=== PATIENT | male | born 1965 | race Hispanic/Latino ===

== ENCOUNTER 2019-07-05 19:26 | Inpatient (IN) | payer OTHER ==
--- NOTE | 2019-07-05 19:31 | Emergency Department Report ---
ED Chest Pain HPI - General Stated Complaint: CHEST PAIN Time Seen by Provider: 07/05/19 19:31 Source: patient Mode of arrival: Stretcher Limitations: No Limitations - History of Present Illness Initial Comments: Patient is a 53-year-old male that presents emergency room with complaints of chest pain. Patient describes chest pain as a tightness. Patient states the chest pain started at 4 PM today. Patient states the symptoms are worsening. Patient states his chest pain is radiating to his left arm, neck and jaw. Patient states it is a 6 out of 10. Patient states it is better with rest and worse with exertion. Patient also complains of shortness of breath, dyspnea on exertion, diaphoresis and anxiety. Patient states his shortness of breath is better with rest and worse with exertion. Patient states he has had 6 stents placed and his last HI was 6 months ago. Patient states his weapons engineer planning on placing another stent. Patient states he has a past medical history of hypertension alcohol withdrawal seizure, HI, chronic angina, TIA, CAD, hyperlipidemia, chronic pain. Patient is currently at [facility] [place] a 1013 for suicidal ideations and depression. Patient was brought in by EMS. EMS report received. EMS states the patient was picked up at [facility] facility and was given aspirin 325 orally. MD Complaint: chest pain -: Sudden - Related Data Home Medications Medication Instructions Recorded Confirmed Last Taken Amoxicillin/K Clav Tab [Augmentin 1 tab PO Q12HR 07/05/19 07/05/19 Unknown 875 mg] Aspirin EC [Ecotrin] 325 mg PO QDAY 07/05/19 07/05/19 Unknown AtorvaSTATin [Lipitor] 20 mg PO QHS 07/05/19 07/05/19 Unknown Clopidogrel [Plavix] 75 mg PO HS 07/05/19 07/05/19 Unknown Docusate Sodium [Colace] 100 mg PO BID PRN 07/05/19 07/05/19 Unknown FLUoxetine [PROzac] 20 mg PO QDAY 07/05/19 07/05/19 Unknown Folic Acid 1 mg PO DAILY 07/05/19 07/05/19 Unknown Gabapentin [Neurontin] 400 mg PO BID 07/05/19 07/05/19 Unknown Gabapentin [Neurontin] 800 mg PO TID 07/05/19 07/05/19 Unknown ISOSORBIDE MONOnitrate [Imdur ER] 30 mg PO DAILY 07/05/19 07/05/19 Unknown Metoprolol [Lopressor TAB] 50 mg PO BID 07/05/19 07/05/19 Unknown Multivitamin [One Daily 1 each PO DAILY 07/05/19 07/05/19 Unknown Multivitamin] Oxazepam 15 mg PO QID 07/05/19 07/05/19 Unknown Oxazepam [Serax] 15 mg PO BID 07/05/19 07/05/19 Unknown Oxazepam [Serax] 30 mg PO QID 07/05/19 07/05/19 Unknown Paliperidone Palmitate(Nf) [Invega 234 mg IM DAILY 07/05/19 07/05/19 Unknown Sustenna(Nf)] carBAMazepine [TEGretol] 200 mg PO Q12HR 07/05/19 07/05/19 Unknown diphenhydrAMINE [Benadryl CAP] 50 mg PO Q4H PRN 07/05/19 07/05/19 Unknown haloperidoL [Haldol] 5 mg PO Q4H PRN 07/05/19 07/05/19 Unknown hydrOXYzine PAMOATE [Vistaril] 25 mg PO Q6HR PRN 07/05/19 07/05/19 Unknown lisinopriL [Zestril] 20 mg PO QDAY 07/05/19 07/05/19 Unknown risperiDONE [RisperDAL] 3 mg PO HS 07/05/19 07/05/19 Unknown Allergies Allergy/AdvReac Type Severity Reaction Status Date / Time No Known Allergies Allergy Verified 07/05/19 22:04 Heart Score - HEART Score History: Moderately suspicious EKG: Normal Age: 45-65 Risk factors: > 3 risk factors or hx of atherosclerotic disease Troponin: < normal limit HEART Score: 4 ED Review of Systems ROS: Stated complaint: CHEST PAIN Other details as noted in HPI Constitutional: diaphoresis. denies: chills, fever Eyes: denies: eye pain, eye discharge, vision change ENT: denies: ear pain, throat pain Respiratory: shortness of breath, SOB with exertion, SOB at rest. denies: cough, wheezing Cardiovascular: chest pain, dyspnea on exertion. denies: palpitations Endocrine: no symptoms reported Gastrointestinal: denies: abdominal pain, nausea, diarrhea Genitourinary: denies: urgency, dysuria Musculoskeletal: denies: back pain, joint swelling, arthralgia Skin: denies: rash, lesions Neurological: denies: headache, weakness, paresthesias Psychiatric: anxiety. denies: depression Hematological/Lymphatic: denies: easy bleeding, easy bruising ED Past Medical Hx - Past Medical History Previous Medical History?: Yes Hx Hypertension: Yes Hx CVA: Yes Hx Heart Attack/AMI: Yes Hx Congestive Heart Failure: No Hx Seizures: Yes Hx Psychiatric Treatment: Yes - Surgical History Past Surgical History?: Yes Hx Coronary Stent: Yes - Family History Family history: no significant - Social History Smoking Status: Current Every Day Smoker Substance Use Type: Alcohol - Medications Home Medications: Home Medications Medication Instructions Recorded Confirmed Last Taken Type Amoxicillin/K Clav Tab [Augmentin 1 tab PO Q12HR 07/05/19 07/05/19 Unknown History 875 mg] Aspirin EC [Ecotrin] 325 mg PO QDAY 07/05/19 07/05/19 Unknown History AtorvaSTATin [Lipitor] 20 mg PO QHS 07/05/19 07/05/19 Unknown History Clopidogrel [Plavix] 75 mg PO HS 07/05/19 07/05/19 Unknown History Docusate Sodium [Colace] 100 mg PO BID PRN 07/05/19 07/05/19 Unknown History FLUoxetine [PROzac] 20 mg PO QDAY 07/05/19 07/05/19 Unknown History Folic Acid 1 mg PO DAILY 07/05/19 07/05/19 Unknown History Gabapentin [Neurontin] 400 mg PO BID 07/05/19 07/05/19 Unknown History Gabapentin [Neurontin] 800 mg PO TID 07/05/19 07/05/19 Unknown History ISOSORBIDE MONOnitrate [Imdur ER] 30 mg PO DAILY 07/05/19 07/05/19 Unknown History Metoprolol [Lopressor TAB] 50 mg PO BID 07/05/19 07/05/19 Unknown History Multivitamin [One Daily 1 each PO DAILY 07/05/19 07/05/19 Unknown History Multivitamin] Oxazepam 15 mg PO QID 07/05/19 07/05/19 Unknown History Oxazepam [Serax] 15 mg PO BID 07/05/19 07/05/19 Unknown History Oxazepam [Serax] 30 mg PO QID 07/05/19 07/05/19 Unknown History Paliperidone Palmitate(Nf) [Invega 234 mg IM DAILY 07/05/19 07/05/19 Unknown History Sustenna(Nf)] carBAMazepine [TEGretol] 200 mg PO Q12HR 07/05/19 07/05/19 Unknown History diphenhydrAMINE [Benadryl CAP] 50 mg PO Q4H PRN 07/05/19 07/05/19 Unknown History haloperidoL [Haldol] 5 mg PO Q4H PRN 07/05/19 07/05/19 Unknown History hydrOXYzine PAMOATE [Vistaril] 25 mg PO Q6HR PRN 07/05/19 07/05/19 Unknown History lisinopriL [Zestril] 20 mg PO QDAY 07/05/19 07/05/19 Unknown History risperiDONE [RisperDAL] 3 mg PO HS 07/05/19 07/05/19 Unknown History ED Physical Exam - General Limitations: No Limitations General appearance: alert, in no apparent distress - Head Head exam: Present: atraumatic, normocephalic - Eye Eye exam: Present: normal appearance - ENT ENT exam: Present: mucous membranes moist - Neck Neck exam: Present: normal inspection - Respiratory Respiratory exam: Present: normal lung sounds bilaterally. Absent: respiratory distress, wheezes, rales, chest wall tenderness - Cardiovascular Cardiovascular Exam: Present: regular rate, normal rhythm. Absent: systolic murmur, diastolic murmur, rubs, gallop - GI/Abdominal GI/Abdominal exam: Present: soft, normal bowel sounds - Rectal Rectal exam: Present: deferred - Extremities Exam Extremities exam: Present: normal inspection - Back Exam Back exam: Present: normal inspection - Neurological Exam Neurological exam: Present: alert, oriented X3 - Psychiatric Psychiatric exam: Present: normal affect, normal mood - Skin Skin exam: Present: warm, dry, intact, normal color. Absent: rash ED Course Vital Signs 07/05/19 07/05/19 07/05/19 19:38 19:41 20:05 Temperature 98.2 F 98.2 F Pulse Rate 84 84 Respiratory 16 16 19 Rate Blood Pressure 142/84 Blood Pressure 142/84 [Left] O2 Sat by Pulse 99 99 Oximetry 07/05/19 07/05/19 07/05/19 20:09 20:20 20:35 Temperature Pulse Rate 67 66 Respiratory 16 Rate Blood Pressure 124/74 122/68 Blood Pressure [Left] O2 Sat by Pulse Oximetry 07/05/19 07/05/19 07/05/19 20:40 22:18 23:46 Temperature 98.2 F 97.4 F L Pulse Rate 63 63 59 L Respiratory 16 18 Rate Blood Pressure 126/68 122/75 Blood Pressure 117/60 [Left] O2 Sat by Pulse 100 93 Oximetry - Reevaluation(s) Reevaluation #1: Patient states his pain is better. I discussed all results with patient. I discussed plan of care with patient. Patient agrees with plan of care and admission. Patient to be admitted to the hospitalist service. Patient came in with a 1013 from his psychiatric facility but a order in our system will be placed for 1013 for this facility 07/05/19 21:35 - Consultations Consultation #1: Hospitalist consulted for admission. Hospitalist to admit patient. Bridge orders placed. 07/05/19 21:36 BETY score - Bety Score Age > 65: (0) No Aspirin use within the Past 7 Days: (1) Yes 3 or more CAD Risk Factors: (1) Yes 2 or more Angina events in past 24 hrs: (0) No Known CAD with more than 50% Stenosis: (1) Yes Elevated Cardiac Markers: (0) No ST Deviation Greater than 0.5mm: (0) No BETY Score: 3 ED Medical Decision Making - Lab Data Result diagrams: 07/05/19 20:00 07/05/19 20:00 - EKG Data -: EKG Interpreted by [place] EKG shows normal: sinus rhythm, axis, intervals, QRS complexes, ST-T waves Rate: normal - Radiology Data Radiology results: report reviewed, image reviewed CHEST 1 VIEW INDICATION: Chest Pain. COMPARISON: None FINDINGS: Support devices: None. Heart: Within normal limits. Lungs/Pleura: No acute air space or interstitial disease. Additional findings: None. IMPRESSION: 1. No acute findings. - Medical Decision Making Patient is a 53-year-old male that presents emergency room with complaints of chest pain. Patient was currently at a psychiatric facility for suicidal ideations and depression. Patient came with a sitter. Patient has an extensive cardiac history to include stents and CAD. Patient has already had 6 stents and his weapons engineer was planning on placing a 7th stent . Patient was given aspirin nitro and morphine. Patient's pain improved. Patient's labs unremarkable. Patient admitted to the hospitalist service. Patient's EKG negative for STEMI. Patient's chest x-ray negative for acute findings. - Differential Diagnosis Chest pain, ACS, shortness of breath, MCCANN Critical Care Time: Yes Critical care time in (mins) excluding proc time.: 35 Critical care attestation.: If time is entered above; I have spent that time in minutes in the direct care of this critically ill patient, excluding procedure time. Critical Care Time: 35 minutes ED Disposition Clinical Impression: SOB (shortness of breath), MCCANN (dyspnea on exertion) Chest pain Qualifiers: Chest pain type: unspecified Qualified Code(s): R07.9 - Chest pain, unspecified CAD (coronary artery disease) Qualifiers: Coronary Disease-Associated Artery/Lesion type: [place] artery [place] vs. transplanted heart: [place] heart Associated angina: angina presence unspecified Qualified Code(s): I25.10 - Atherosclerotic heart disease of [place] coronary artery without angina pectoris Disposition: DC-09 OP ADMIT IP TO THIS HOSP Is pt being admited?: Yes Does the pt Need Aspirin: No Condition: Critical Time of Disposition: 21:31
[2019-07-05] MEDS ORDERED: MORPHINE 2 MG/1 ML INJ IV ONE (19:45)
[2019-07-05] MEDS: NITROGLYCERIN 0.4 MG TAB SUBL SL ONE ×3 (20:09→20:40)
[2019-07-05 20:14] LABS: Basophils % (Auto) 0.5 % (0.0-1.8); Eosinophils # (Auto) 0.4 K/mm3 (0.0-0.4); Eosinophils % (Auto) 4.5 % (0.0-4.3); Hemoglobin 14.3 gm/dl (11.8-15.2); Lymphocytes # (Auto) 2.3 K/mm3 (1.2-5.4); Lymphocytes % (Auto) 29.3 % (13.4-35.0); Mean Corpuscular HGB Conc 33 % (32-34); Mean Corpuscular Volume 92 fl (84-94); Monocytes # (Auto) 0.8 K/mm3 (0.0-0.8); Monocytes % (Auto) 9.9 % (0.0-7.3); Platelet Count 275 K/mm3 (140-440); Red Cell Distribution Width 13.8 % (13.2-15.2)
--- NOTE | 2019-07-05 20:16 | XRay Report ---
CHEST 1 VIEW INDICATION: Chest Pain. COMPARISON: None FINDINGS: Support devices: None. Heart: Within normal limits. Lungs/Pleura: No acute air space or interstitial disease. Additional findings: None. IMPRESSION: 1. No acute findings. Signer Name: Dm Palomares MD Signed: 07/05/2019 8:12 PM Workstation Name: [id number]
[2019-07-05 20:34] LABS: Bilirubin,Urine NEG (Negative); Blood,Urine NEG (Negative); Color,Urine Yellow (Yellow); Protein,Urine <15 mg/dL mg/dL (Negative); Urobilinogen,Urine < 2.0 mg/dL (<2.0)
[2019-07-05 20:36] LABS: Amphetamine Screen,Urine PRESUMPTIVE NEGATIVE; Cannabinoid Screen,Urine PRESUMPTIVE NEGATIVE; Cocaine Screen,Urine PRESUMPTIVE NEGATIVE; Methadone Screen,Urine PRESUMPTIVE NEGATIVE; Opiate Screen,Urine PRESUMPTIVE NEGATIVE
[2019-07-05 20:39] LABS: Alanine Aminotransferase 27 units/L (7-56); Albumin 3.9 g/dL (3.9-5); BUN/Creatinine Ratio 21; Blood Urea Nitrogen 21 mg/dL (9-20); Calcium 9.1 mg/dL (8.4-10.2); Hemolysis Index 17
[2019-07-05 20:47] LABS: Benzodiazepines Screen,Urine PRESUMPTIVE POSITIVE
--- NOTE | 2019-07-05 21:58 | History and Physical Report ---
History of Present Illness History of present illness: 53-year-old man with a history of hypertension, coronary artery disease, status post 6 stents, the last stent was a month ago, also has a history of TIA hyperlipidemia, chronic pain, depression comes emergency room for evaluation of chest pain. On the chart from reports it states that he has a history of schizoaffective disorder however the patient denies this diagnosis, he states that the doctor was going to correct it. His chest pain is in the epigastric area that started today which is described as a crushing pain, constant, intensity is 6/10, radiating to the left arm and jaw, cannot identify exacerbating factor, relieved with nitroglycerin. Admits to shortness of breath, nausea, no diaphoresis or palpitation. Patient states that his select banker was thinking of placing a 7 stent. Patient was admitted at [facility] for suicidal and homicidal ideation, he will be admitted here for chest pain evaluation Review Of Systems: Constitutional: no weight loss, fever, chills Ears, eyes, nose, mouth and throat: no nasal congestion, no nasal discharge, no sinus pressure, blurry vision, diplopia Neck: No neck pain or rigidity. Cardiovascular: No palpitations Respiratory: No shortness of breath, cough Gastrointestinal: No hematochezia Genitourinary : no dysuria, frequency Musculoskeletal: no muscle ache , joint pain Integumentary: no rash, no pruritis Neurological: no parathesias, focal weakness Endocrine: no cold or heat intolerance, no polyuria or polydipsia Hematologic/Lymphatic: no easy bruising, no easy bleeding, no gland swelling Allergic/Immunologic: no urticaria, no angioedema. PAST MEDICAL HISTORY: hypertension, coronary artery disease, status post 6 stents, TIA hyperlipidemia, chronic pain, depression PAST SURGICAL HISTORY: None SOCIAL HISTORY: + alcohol, +tobacco, no drugs FAMILY HISTORY: Hypertension Medications and Allergies Allergies Allergy/AdvReac Type Severity Reaction Status Date / Time No Known Allergies Allergy Verified 07/05/19 22:04 Exam - Physical Exam Narrative exam: Gen. appearance: Patient lying in bed, no apparent distress HEENT: Normocephalic, atraumatic, pupils equally round and reactive to light, extraocular movement intact, and no sclericterus,. No JVD or thyromegaly or nodule,neck supple, no carotid bruit ,mucous membranes moist, no exudate or erythema Heart: S1, S2, regular rate and rhythm Lungs: Clear bilaterally, breathing comfortable Abdomen: Positive bowel sounds, nontender, nondistended, no organomegaly Extremity: no edema, cyanosis, clubbing Skin: No rash, nodules, warm, dry Neuro: speech is fluent, moves extremities, sensory intact - Constitutional Vitals: Temp Pulse Resp BP Pulse Ox 98.2 F 67 19 124/74 99 07/05/19 19:41 07/05/19 20:09 07/05/19 20:05 07/05/19 20:09 07/05/19 19:41 Results - Labs CBC & Chem 7: 07/05/19 20:00 07/05/19 20:00 Labs: Abnormal lab results 07/05/19 07/05/19 Range/Units 20:00 20:00 [place] % (Auto) 9.9 H (0.0-7.3) % Eos % (Auto) 4.5 H (0.0-4.3) % BUN 21 H (9-20) mg/dL - Imaging and Cardiology EKG: report reviewed Chest x-ray: report reviewed Assessment and Plan Assessment Chest pain/coronary artery disease Check cardiac enzymes, consult cardiology Start IV morphine, Nitropaste, Plavix Suicidal and homicidal ideation Continue 1013, place with a sitter Hypertension Continue outpatient medications Hyperlipidemia, statin continue statin DVT prophylaxis
[2019-07-05] MEDS ORDERED: ONDANSETRON 4 MG/2 ML INJ IV PRN (22:10)
[2019-07-05] MEDS ORDERED: ACETAMINOPHEN 325 MG TAB PO PRN (22:10)
[2019-07-05 23:47] LABS: Creatine Kinase MB 2.5 ng/mL (0.0-4.0)
[2019-07-05] MEDS ORDERED: NITROGLYCERIN 2% OINT 1 GM TP ONE (23:55)
[2019-07-06] MEDS: MORPHINE 2 MG/1 ML INJ IV PRN ×3 (06:02→17:30)
[2019-07-06 06:04] LABS: Basophils # (Auto) 0.1 K/mm3 (0.0-0.1); Basophils % (Auto) 0.8 % (0.0-1.8); Eosinophils # (Auto) 0.4 K/mm3 (0.0-0.4); Eosinophils % (Auto) 4.8 % (0.0-4.3); Hematocrit 43.5 % (35.5-45.6); Hemoglobin 14.2 gm/dl (11.8-15.2); Lymphocytes # (Auto) 2.3 K/mm3 (1.2-5.4); Lymphocytes % (Auto) 31.4 % (13.4-35.0); Mean Corpuscular HGB Conc 33 % (32-34); Mean Corpuscular Volume 92 fl (84-94); Monocytes # (Auto) 0.8 K/mm3 (0.0-0.8); Monocytes % (Auto) 10.6 % (0.0-7.3); Platelet Count 256 K/mm3 (140-440); Red Blood Count 4.72 M/mm3 (3.65-5.03); Red Cell Distribution Width 13.9 % (13.2-15.2)
[2019-07-06 06:25] LABS: BUN/Creatinine Ratio 34; Blood Urea Nitrogen 24 mg/dL (9-20); Calcium 8.5 mg/dL (8.4-10.2); Hemolysis Index 11
--- NOTE | 2019-07-06 09:26 | Consultation ---
History of Present Illness Consult date: 07/06/19 Consult reason: chest pain History of present illness: 53 year old male presenting with chest pain radiating to his left arm, jaw , and upper back. Patient reports history of CAD with multiple PCIs recently performed in [facility]. He states that he is compliant with DAPT. Patient also has a history of alcohol abuse and suicidal ideation. ECG showing no acute findings and troponin are negative x 2. CXR showing NAP. Past History Past Medical History: acute AL, CAD, other (Multiple PCIs) Past Surgical History: PTCA Social history: smoking, alcohol abuse Medications and Allergies Allergies Allergy/AdvReac Type Severity Reaction Status Date / Time No Known Allergies Allergy Verified 07/05/19 22:04 Home Medications Medication Instructions Recorded Confirmed Last Taken Type Amoxicillin/K Clav Tab [Augmentin 1 tab PO Q12HR 07/05/19 07/05/19 Unknown History 875 mg] Aspirin EC [Ecotrin] 325 mg PO QDAY 07/05/19 07/05/19 Unknown History AtorvaSTATin [Lipitor] 20 mg PO QHS 07/05/19 07/05/19 Unknown History Clopidogrel [Plavix] 75 mg PO HS 07/05/19 07/05/19 Unknown History Docusate Sodium [Colace] 100 mg PO BID PRN 07/05/19 07/05/19 Unknown History FLUoxetine [PROzac] 20 mg PO QDAY 07/05/19 07/05/19 Unknown History Folic Acid 1 mg PO DAILY 07/05/19 07/05/19 Unknown History Gabapentin [Neurontin] 400 mg PO BID 07/05/19 07/05/19 Unknown History Gabapentin [Neurontin] 800 mg PO TID 07/05/19 07/05/19 Unknown History ISOSORBIDE MONOnitrate [Imdur ER] 30 mg PO DAILY 07/05/19 07/05/19 Unknown History Metoprolol [Lopressor TAB] 50 mg PO BID 07/05/19 07/05/19 Unknown History Multivitamin [One Daily 1 each PO DAILY 07/05/19 07/05/19 Unknown History Multivitamin] Oxazepam 15 mg PO QID 07/05/19 07/05/19 Unknown History Oxazepam [Serax] 15 mg PO BID 07/05/19 07/05/19 Unknown History Oxazepam [Serax] 30 mg PO QID 07/05/19 07/05/19 Unknown History Paliperidone Palmitate(Nf) [Invega 234 mg IM DAILY 07/05/19 07/05/19 Unknown History Sustenna(Nf)] carBAMazepine [TEGretol] 200 mg PO Q12HR 07/05/19 07/05/19 Unknown History diphenhydrAMINE [Benadryl CAP] 50 mg PO Q4H PRN 07/05/19 07/05/19 Unknown History haloperidoL [Haldol] 5 mg PO Q4H PRN 07/05/19 07/05/19 Unknown History hydrOXYzine PAMOATE [Vistaril] 25 mg PO Q6HR PRN 07/05/19 07/05/19 Unknown History lisinopriL [Zestril] 20 mg PO QDAY 07/05/19 07/05/19 Unknown History risperiDONE [RisperDAL] 3 mg PO HS 07/05/19 07/05/19 Unknown History Active Meds: Active Medications Acetaminophen (Tylenol) 650 mg PO Q4H PRN PRN Reason: Pain MILD(1-3)/Fever >100.5/HINES Clopidogrel Bisulfate (Plavix) 75 mg PO DAILY IRAIS Enoxaparin Sodium (Enoxaparin) 40 mg SUB-Q QDAY IRAIS Morphine Sulfate (Morphine) 2 mg IV Q4H PRN PRN Reason: Pain, Moderate (4-6) Last Admin: 07/06/19 06:02 Dose: 2 mg Documented by: Ondansetron HCl (Zofran) 4 mg IV Q4H PRN PRN Reason: Nausea And Vomiting Sodium Chloride (Sodium Chloride Flush Syringe 10 Ml) 10 ml IV BID IRAIS Sodium Chloride (Sodium Chloride Flush Syringe 10 Ml) 10 ml IV PRN PRN PRN Reason: LINE FLUSH Stop: 07/08/19 22:09 Review of Systems All systems: negative Physical Examination Vital Signs Temp Pulse Resp BP Pulse Ox 98.2 F 84 16 142/84 99 07/05/19 19:38 07/05/19 19:38 07/05/19 19:38 07/05/19 19:38 07/05/19 19:38 General appearance: no acute distress HEENT: Positive: PERRL Neck: Positive: neck supple Cardiac: Positive: Reg Rate and Rhythm Lungs: Positive: Normal Exam Neuro: Positive: Grossly Intact Abdomen: Positive: Soft Extremities: Absent: edema Results 07/06/19 04:26 07/06/19 04:26 Cardiac Enzymes 07/05/19 07/05/19 07/06/19 Range/Units 20:00 23:11 04:26 AST 22 (5-40) units/L CK-MB (CK-2) 2.5 2.0 (0.0-4.0) ng/mL CBC 07/05/19 07/06/19 Range/Units 20:00 04:26 WBC 7.8 7.5 (4.5-11.0) K/mm3 RBC 4.70 4.72 (3.65-5.03) M/mm3 Hgb 14.3 14.2 (11.8-15.2) gm/dl Hct 43.0 43.5 (35.5-45.6) % Plt Count 275 256 (140-440) K/mm3 Lymph # 2.3 2.3 (1.2-5.4) K/mm3 [place] # 0.8 0.8 (0.0-0.8) K/mm3 Eos # 0.4 0.4 (0.0-0.4) K/mm3 Baso # 0.0 0.1 (0.0-0.1) K/mm3 Comprehensive Metabolic Panel 07/05/19 07/06/19 Range/Units 20:00 04:26 Sodium 145 140 (137-145) mmol/L Potassium 4.6 4.1 (3.6-5.0) mmol/L Chloride 104.9 106.0 (98-107) mmol/L Carbon Dioxide 25 20 L (22-30) mmol/L BUN 21 H 24 H (9-20) mg/dL Creatinine 1.0 0.7 L (0.8-1.5) mg/dL Glucose 95 106 H (75-100) mg/dL Calcium 9.1 8.5 (8.4-10.2) mg/dL AST 22 (5-40) units/L ALT 27 (7-56) units/L Alkaline Phosphatase 101 (35-129) units/L Total Protein 6.7 (6.3-8.2) g/dL Albumin 3.9 (3.9-5) g/dL - EKG Interpretation EKG: sinus rhythm EKG interpretations - Telemetry EKG Rhythm: Sinus Rhythm Assessment and Plan Chest pain - Unstable angina Coronary artery disease s/p AL and PCIs, most reent 1-2 months ago in [facility] Nicotine dependence Alcohol abuse Suicidal ideation Recommendations: Resume asa, lipitor, metoprolol, lisinopril, Imdur Start lovenox 1 mg/Kg SC bid Obtain records from [facility] (Discussed with RN)
[2019-07-06] MEDS ORDERED: ENOXAPARIN 40 MG/0.4 ML INJ SUB-Q SCH (10:00)
[2019-07-06] MEDS: CLOPIDOGREL 75 MG TAB PO SCH (10:36)
[2019-07-06] MEDS: ASPIRIN EC 81 MG TAB PO SCH (13:01)
[2019-07-06] MEDS: LISINOPRIL 5 MG TAB PO SCH (13:02)
[2019-07-06] MEDS: ENOXAPARIN 100 MG/1 ML INJ SUB-Q SCH ×2 (13:03→21:40)
[2019-07-06] MEDS: METOPROLOL SUCCINATE XL 25 MG TAB PO SCH (13:03)
--- NOTE | 2019-07-06 14:45 | Progress Note ---
Assessment and Plan Assessment and plan: --Chest pain/coronary artery disease Check cardiac enzymes, cardiology following Start IV morphine, Nitropaste, Plavix --Suicidal and homicidal ideation Continue 1013, place with a sitter Psych evaluation requested --Hypertension Continue current antihypertensives and PRN medications --Hyperlipidemia, statin low-cholesterol diet DVT prophylaxis History Interval history: Patient seen and examined at bedside Patient complains of some intermittent chest pain Denies nausea vomiting or diaphoresis Also complains of suicidal thoughts and ideation 1013 status Vital signs noted Hospitalist Physical - Constitutional Vitals: Temp Pulse Resp BP Pulse Ox 97.5 F L 67 16 129/78 98 07/06/19 11:50 07/06/19 13:03 07/06/19 11:50 07/06/19 13:03 07/06/19 12:41 General appearance: Present: no acute distress, well-nourished - EENT Eyes: Present: PERRL, EOM intact - Neck Neck: Present: supple, normal ROM - Respiratory Respiratory effort: normal Respiratory: bilateral: diminished, negative: rales, rhonchi, wheezing - Cardiovascular Rhythm: regular Heart Sounds: Present: S1 & S2 - Extremities Extremities: no ischemia, No edema - Abdominal General gastrointestinal: soft, non-tender, non-distended, normal bowel sounds - Integumentary Integumentary: Present: clear, warm - Psychiatric Psychiatric: appropriate mood/affect, cooperative - Neurologic Neurologic: moves all extremities BETY score - Bety Score Age > 65: (0) No Aspirin use within the Past 7 Days: (1) Yes 3 or more CAD Risk Factors: (1) Yes 2 or more Angina events in past 24 hrs: (0) No Known CAD with more than 50% Stenosis: (1) Yes Elevated Cardiac Markers: (0) No ST Deviation Greater than 0.5mm: (0) No BETY Score: 3 Results - Labs CBC & Chem 7: 07/06/19 04:26 07/06/19 04:26 Labs: Laboratory Last Values WBC 7.5 K/mm3 (4.5-11.0) 07/06/19 04:26 RBC 4.72 M/mm3 (3.65-5.03) 07/06/19 04:26 Hgb 14.2 gm/dl (11.8-15.2) 07/06/19 04:26 Hct 43.5 % (35.5-45.6) 07/06/19 04:26 MCV 92 fl (84-94) 07/06/19 04:26 MCH 30 pg (28-32) 07/06/19 04:26 MCHC 33 % (32-34) 07/06/19 04:26 RDW 13.9 % (13.2-15.2) 07/06/19 04:26 Plt Count 256 K/mm3 (140-440) 07/06/19 04:26 Lymph % (Auto) 31.4 % (13.4-35.0) 07/06/19 04:26 [place] % (Auto) 10.6 % (0.0-7.3) H 07/06/19 04:26 Eos % (Auto) 4.8 % (0.0-4.3) H 07/06/19 04:26 Baso % (Auto) 0.8 % (0.0-1.8) 07/06/19 04:26 Lymph # 2.3 K/mm3 (1.2-5.4) 07/06/19 04:26 [place] # 0.8 K/mm3 (0.0-0.8) 07/06/19 04:26 Eos # 0.4 K/mm3 (0.0-0.4) 07/06/19 04:26 Baso # 0.1 K/mm3 (0.0-0.1) 07/06/19 04:26 Seg Neutrophils % 52.4 % (40.0-70.0) 07/06/19 04:26 Seg Neutrophils # 3.9 K/mm3 (1.8-7.7) 07/06/19 04:26 Sodium 140 mmol/L (137-145) 07/06/19 04:26 Potassium 4.1 mmol/L (3.6-5.0) 07/06/19 04:26 Chloride 106.0 mmol/L (98-107) 07/06/19 04:26 Carbon Dioxide 20 mmol/L (22-30) L 07/06/19 04:26 Anion Gap 18 mmol/L 07/06/19 04:26 BUN 24 mg/dL (9-20) H 07/06/19 04:26 Creatinine 0.7 mg/dL (0.8-1.5) L 07/06/19 04:26 Estimated GFR > 60 ml/min 07/06/19 04:26 BUN/Creatinine Ratio 34 % 07/06/19 04:26 Glucose 106 mg/dL (75-100) H 07/06/19 04:26 Calcium 8.5 mg/dL (8.4-10.2) 07/06/19 04:26 Total Bilirubin < 0.20 mg/dL (0.1-1.2) 07/05/19 20:00 AST 22 units/L (5-40) 07/05/19 20:00 ALT 27 units/L (7-56) 07/05/19 20:00 Alkaline Phosphatase 101 units/L (35-129) 07/05/19 20: Total Creatine Kinase 92 units/L (55-170) 07/06/19 04:26 CK-MB (CK-2) 2.0 ng/mL (0.0-4.0) 07/06/19 04:26 CK-MB (CK-2) Rel Index 2.1 (0-4) 07/06/19 04:26 Troponin T < 0.010 ng/mL (0.00-0.029) 07/06/19 04:26 Total Protein 6.7 g/dL (6.3-8.2) 07/05/19 20: Albumin 3.9 g/dL (3.9-5) 07/05/19 20:00 Albumin/Globulin Ratio 1.4 % 07/05/19 20: Urine Color Yellow (Yellow) 07/05/19 20: Urine Turbidity Clear (Clear) 07/05/19 20: Urine pH 6.0 (5.0-7.0) 07/05/19 20:11 Ur Specific [place] 1.019 (1.003-1.030) 07/05/19 20: Urine Protein <15 mg/dl mg/dL (Negative) 07/05/19 20: Urine Glucose (UA) Neg mg/dL (Negative) 07/05/19 20: Urine Ketones Neg mg/dL (Negative) 07/05/19 20:11 Urine Blood Neg (Negative) 07/05/19 20: Urine Nitrite Neg (Negative) 07/05/19 20: Urine Bilirubin Neg (Negative) 07/05/19 20:11 Urine Urobilinogen < 2.0 mg/dL (<2.0) 07/05/19 20:11 Ur Leukocyte Esterase Neg (Negative) 07/05/19 20:11 Urine WBC (Auto) 1.0 /HPF (0.0-6.0) 07/05/19 20:11 Urine RBC (Auto) 1.0 /HPF (0.0-6.0) 07/05/19 20:11 Urine Opiates Screen Presumptive negative 07/05/19 20:11 Urine Methadone Screen Presumptive negative 07/05/19 20:11 Ur Barbiturates Screen Presumptive negative 07/05/19 20:11 Ur Phencyclidine Scrn Presumptive negative 07/05/19 20:11 Ur Amphetamines Screen Presumptive negative 07/05/19 20:11 U Benzodiazepines Scrn Presumptive positive 07/05/19 20:11 Urine Cocaine Screen Presumptive negative 07/05/19 20:11 U Marijuana (THC) Screen Presumptive negative 07/05/19 20:11 Drugs of Abuse Note Disclamer 07/05/19 20:11 Active Medications - Current Medications Current Medications: Generic Name Dose Route Start Last Admin Trade Name Freq PRN Reason Stop Dose Admin Acetaminophen 650 mg 07/05/19 22:10 Tylenol PO Q4H PRN Pain MILD(1-3)/Fever >100.5/HINES Aspirin 81 mg 07/06/19 10:00 07/06/19 13:01 Halfprin Ec PO 81 mg QDAY IRAIS Administration Atorvastatin Calcium 40 mg 07/06/19 22:00 Lipitor PO QHS [facility] Clopidogrel Bisulfate 75 mg 07/06/19 10:00 07/06/19 10:36 Plavix PO 75 mg DAILY IRAIS Administration Enoxaparin Sodium 90 mg 07/06/19 10:00 07/06/19 13:03 Enoxaparin 1 mg/kg (90 mg) 90 mg SUB-Q Administration Q12HR [facility] Isosorbide Mononitrate 30 mg 07/06/19 10:00 07/06/19 13:02 Imdur PO 30 mg QDAY IRAIS Administration Lisinopril 5 mg 07/06/19 10:00 07/06/19 13:02 Zestril PO 5 mg QDAY [facility] Administration Metoprolol Succinate 25 mg 07/06/19 10:00 07/06/19 13:03 Metoprolol Xl PO 25 mg QDAY IRAIS Administration Morphine Sulfate 2 mg 07/05/19 22:10 07/06/19 11:25 Morphine IV 2 mg Q4H PRN Administration Pain, Moderate (4-6) Ondansetron HCl 4 mg 07/05/19 22:10 Zofran IV Q4H PRN Nausea And Vomiting Sodium Chloride 10 ml 07/06/19 10:00 07/06/19 10:37 Sodium Chloride Flush Syringe 10 Ml IV 10 ml BID IRAIS Administration Sodium Chloride 10 ml 07/05/19 22:10 Sodium Chloride Flush Syringe 10 Ml IV 07/08/19 22:09 PRN PRN LINE FLUSH
[2019-07-07] MEDS: MORPHINE 2 MG/1 ML INJ IV PRN ×4 (06:53→21:13)
[2019-07-07] MEDS: CLOPIDOGREL 75 MG TAB PO SCH (10:10)
[2019-07-07] MEDS: LISINOPRIL 5 MG TAB PO SCH (10:11)
[2019-07-07] MEDS: METOPROLOL SUCCINATE XL 25 MG TAB PO SCH (10:11)
[2019-07-07] MEDS: ASPIRIN EC 81 MG TAB PO SCH (10:11)
[2019-07-07] MEDS: ENOXAPARIN 100 MG/1 ML INJ SUB-Q SCH ×2 (10:11→21:13)
--- NOTE | 2019-07-07 12:10 | Progress Note ---
Assessment and Plan Assessment and plan: --Chest pain/coronary artery disease Check cardiac enzymes, cardiology valuation noted Continue current cardiac medications No further cardiac work-up during this admission Cleared for discharge --Suicidal and homicidal ideation Continue 1013, place with a sitter Psych evaluation noted --Hypertension Continue current antihypertensives and PRN medications --Hyperlipidemia, statin low-cholesterol diet DVT prophylaxis Follow psych evaluation and recommendations Possible discharge back to psych facility if stable History Interval history: Patient seen and examined Patient's chart medications and other records reviewed flatwork folder at the bedside Patient is comfortable no agitation aggression or psychotic behavior Vital signs reviewed Hospitalist Physical - Constitutional Vitals: Temp Pulse Resp BP Pulse Ox 97.7 F 61 18 135/79 94 07/07/19 08:52 07/07/19 08:52 07/07/19 08:52 07/07/19 08:52 07/07/19 08:52 General appearance: Present: no acute distress, well-nourished - EENT Eyes: Present: PERRL, EOM intact - Neck Neck: Present: supple, normal ROM - Respiratory Respiratory effort: normal Respiratory: bilateral: diminished, negative: rales, rhonchi, wheezing - Cardiovascular Rhythm: regular Heart Sounds: Present: S1 & S2 - Extremities Extremities: no ischemia, No edema - Abdominal General gastrointestinal: soft, non-tender, non-distended, normal bowel sounds - Integumentary Integumentary: Present: clear, warm - Psychiatric Psychiatric: appropriate mood/affect - Neurologic Neurologic: moves all extremities BETY score - Bety Score Age > 65: (0) No Aspirin use within the Past 7 Days: (1) Yes 3 or more CAD Risk Factors: (1) Yes 2 or more Angina events in past 24 hrs: (0) No Known CAD with more than 50% Stenosis: (1) Yes Elevated Cardiac Markers: (0) No ST Deviation Greater than 0.5mm: (0) No BETY Score: 3 Results - Labs CBC & Chem 7: 07/06/19 04:26 07/06/19 04:26 Labs: Laboratory Last Values WBC 7.5 K/mm3 (4.5-11.0) 07/06/19 04:26 RBC 4.72 M/mm3 (3.65-5.03) 07/06/19 04:26 Hgb 14.2 gm/dl (11.8-15.2) 07/06/19 04:26 Hct 43.5 % (35.5-45.6) 07/06/19 04:26 MCV 92 fl (84-94) 07/06/19 04:26 MCH 30 pg (28-32) 07/06/19 04:26 MCHC 33 % (32-34) 07/06/19 04:26 RDW 13.9 % (13.2-15.2) 07/06/19 04:26 Plt Count 256 K/mm3 (140-440) 07/06/19 04:26 Lymph % (Auto) 31.4 % (13.4-35.0) 07/06/19 04:26 [place] % (Auto) 10.6 % (0.0-7.3) H 07/06/19 04:26 Eos % (Auto) 4.8 % (0.0-4.3) H 07/06/19 04:26 Baso % (Auto) 0.8 % (0.0-1.8) 07/06/19 04:26 Lymph # 2.3 K/mm3 (1.2-5.4) 07/06/19 04:26 [place] # 0.8 K/mm3 (0.0-0.8) 07/06/19 04:26 Eos # 0.4 K/mm3 (0.0-0.4) 07/06/19 04:26 Baso # 0.1 K/mm3 (0.0-0.1) 07/06/19 04:26 Seg Neutrophils % 52.4 % (40.0-70.0) 07/06/19 04:26 Seg Neutrophils # 3.9 K/mm3 (1.8-7.7) 07/06/19 04:26 Sodium 140 mmol/L (137-145) 07/06/19 04:26 Potassium 4.1 mmol/L (3.6-5.0) 07/06/19 04:26 Chloride 106.0 mmol/L (98-107) 07/06/19 04:26 Carbon Dioxide 20 mmol/L (22-30) L 07/06/19 04:26 Anion Gap 18 mmol/L 07/06/19 04:26 BUN 24 mg/dL (9-20) H 07/06/19 04:26 Creatinine 0.7 mg/dL (0.8-1.5) L 07/06/19 04:26 Estimated GFR > 60 ml/min 07/06/19 04:26 BUN/Creatinine Ratio 34 % 07/06/19 04:26 Glucose 106 mg/dL (75-100) H 07/06/19 04:26 Calcium 8.5 mg/dL (8.4-10.2) 07/06/19 04:26 Total Bilirubin < 0.20 mg/dL (0.1-1.2) 07/05/19 20:00 AST 22 units/L (5-40) 07/05/19 20:00 ALT 27 units/L (7-56) 07/05/19 20:00 Alkaline Phosphatase 101 units/L (35-129) 07/05/19 20:00 Total Creatine Kinase 92 units/L (55-170) 07/06/19 04:26 CK-MB (CK-2) 2.0 ng/mL (0.0-4.0) 07/06/19 04:26 CK-MB (CK-2) Rel Index 2.1 (0-4) 07/06/19 04:26 Troponin T < 0.010 ng/mL (0.00-0.029) 07/06/19 04:26 Total Protein 6.7 g/dL (6.3-8.2) 07/05/19 20:00 Albumin 3.9 g/dL (3.9-5) 07/05/19 20:00 Albumin/Globulin Ratio 1.4 % 07/05/19 20:00 Urine Color Yellow (Yellow) 07/05/19 20:11 Urine Turbidity Clear (Clear) 07/05/19 20:11 Urine pH 6.0 (5.0-7.0) 07/05/19 20:11 Ur Specific [place] 1.019 (1.003-1.030) 07/05/19 20:11 Urine Protein <15 mg/dl mg/dL (Negative) 07/05/19 20:11 Urine Glucose (UA) Neg mg/dL (Negative) 07/05/19 20:11 Urine Ketones Neg mg/dL (Negative) 07/05/19 20:11 Urine Blood Neg (Negative) 07/05/19 20: Urine Nitrite Neg (Negative) 07/05/19 20:11 Urine Bilirubin Neg (Negative) 07/05/19 20:11 Urine Urobilinogen < 2.0 mg/dL (<2.0) 07/05/19 20:11 Ur Leukocyte Esterase Neg (Negative) 07/05/19 20:11 Urine WBC (Auto) 1.0 /HPF (0.0-6.0) 07/05/19 20:11 Urine RBC (Auto) 1.0 /HPF (0.0-6.0) 07/05/19 20:11 Urine Opiates Screen Presumptive negative 07/05/19 20:11 Urine Methadone Screen Presumptive negative 07/05/19 20:11 Ur Barbiturates Screen Presumptive negative 07/05/19 20:11 Ur Phencyclidine Scrn Presumptive negative 07/05/19 20:11 Ur Amphetamines Screen Presumptive negative 07/05/19 20:11 U Benzodiazepines Scrn Presumptive positive 07/05/19 20:11 Urine Cocaine Screen Presumptive negative 07/05/19 20:11 U Marijuana (THC) Screen Presumptive negative 07/05/19 20:11 Drugs of Abuse Note Disclamer 07/05/19 20:11 Active Medications - Current Medications Current Medications: Generic Name Dose Route Start Last Admin Trade Name Freq PRN Reason Stop Dose Admin Acetaminophen 650 mg 07/05/19 22:10 Tylenol PO Q4H PRN Pain MILD(1-3)/Fever >100.5/HINES Aspirin 81 mg 07/06/19 10:00 07/07/19 10:11 Halfprin Ec PO 81 mg QDAY IRAIS Administration Atorvastatin Calcium 40 mg 07/06/19 22:00 07/06/19 21:40 Lipitor PO 40 mg QHS IRAIS Administration Clopidogrel Bisulfate 75 mg 07/06/19 10:00 07/07/19 10:10 Plavix PO 75 mg DAILY IRAIS Administration Enoxaparin Sodium 90 mg 07/06/19 10:00 07/07/19 10:11 Enoxaparin 1 mg/kg (90 mg) 90 mg SUB-Q Administration Q12HR [facility] Isosorbide Mononitrate 30 mg 07/06/19 10:00 07/07/19 10:11 Imdur PO 30 mg QDAY IRAIS Administration Lisinopril 5 mg 07/06/19 10:00 07/07/19 10:11 Zestril PO 5 mg QDAY IRAIS Administration Metoprolol Succinate 25 mg 07/06/19 10:00 07/07/19 10:11 Metoprolol Xl PO 25 mg QDAY IRAIS Administration Morphine Sulfate 2 mg 07/05/19 22:10 07/07/19 11:13 Morphine IV 2 mg Q4H PRN Administration Pain, Moderate (4-6) Ondansetron HCl 4 mg 07/05/19 22:10 Zofran IV Q4H PRN Nausea And Vomiting Sodium Chloride 10 ml 07/06/19 10:00 07/07/19 10:11 Sodium Chloride Flush Syringe 10 Ml IV 10 ml BID IRAIS Administration Sodium Chloride 10 ml 07/05/19 22:10 Sodium Chloride Flush Syringe 10 Ml IV 07/08/19 22:09 PRN PRN LINE FLUSH
--- NOTE | 2019-07-07 12:12 | Consultation ---
History of Present Illness - Reason for Consult Consult date: 07/07/19 Reason for consult: psychiatric assessment - History of Present Psychiatric Illness Mr. Rocha is a 53-year-old male, the patient is alert oriented x3 he is dressed appropriately for the occasion he maintains eye contact. The patient reports that he was in [place] for detox from drugs and alcohol and started having chest pain and was brought to the emergency room. The patient reports that he does have a history of depression and anxiety that he currently takes Prozac 30 mg daily gabapentin 803 times a day to help with depression. The patient stated while he was at [place] he was also committed for suicidal ideation he denies any suicidal ideation at this time he also reported previously visual hallucinations of seeing animals he now denies visual or auditory hallucination. The patient report that he is eating well but he does not sleep well he gets 3 hours of sleep nightly. The patient stated that he was severely depressed he and report that he still depressed but think he is doing much better. The patient reports that he does drink daily but was on Suboxone while in the [facility]. PAST PSYCHIATRIC HISTORY: Diagnoses: Depression/anxiety Suicide attempts or Self-harm behavior denies Prior psychiatric hospitalizations: Yes Substance Abuse history: Marijuana and alcohol Previous psychiatric medications tried: Prozac, gabapentin Outpatient treatment: PAST MEDICAL HISTORY: Cardiac stents/high blood pressure Family Psychiatric History Brother/mom/grandmother SOCIAL HISTORY Marital Status: Single Living Arrangements: Self Employment Status: Self-employed Access to guns/weapons: Denies Education: GED History of Abuse: Denies Legal History: Yes ROS: Constitutional: Negative for weight loss ENT: Negative for stridor Respiratory: Negative for cough or hemoptysis All other systems reviewed and are negative MENTAL STATUS General Appearance and Behavior: age appropriate, good eye contact, cooperative with questioning and polite Cooperation: Cooperative Psychomotor Behavior: within normal limits Mood: OK Affect and affective range: Congruent with stated mood Thought Process: Fluent/Logical and Goal-directed Thought Content: Within reality Speech: Normal volume and Regular rate and rhythm Intellectual Functioning Average Suicidal Ideation: Denies SI Homicidal Ideation: Denies HI Impulse Control: intact Insight and Judgment: normal insight and judgment Memory: Normal Attention: Normal Orientation: alert and orientedx3 RECOMMENDATIONS MEDICATIONS: Start Prozac 30 mg daily-depression Start gabapentin 800 mg 3 times daily-alcohol dependence Start trazodone 50 mg nightly sleep Risks, benefits and alternatives of medications discussed with the patient, questions answered and consent obtained from patient. PSYCHOTHERAPY: Supportive psychotherapy provided MEDICAL: Per primary team DELIRIUM PRECAUTIONS: Please re-orient patient frequently, keep lights on during the day, and minimize benzodiazepines and opiates as these medications could w orsen patient's confusion. INFORMATION DEVELOPER: DISPOSITION: The patient meets the requirement for acute inpatient psychiatric treatment at this time. She may transfer back to [place] [facility] upon medical clearance. LEGAL STATUS: 1013 FOLLOW-UP: Will follow Medications and Allergies Allergies Allergy/AdvReac Type Severity Reaction Status Date / Time No Known Allergies Allergy Verified 07/05/19 22:04 Home Medications Medication Instructions Recorded Confirmed Last Taken Type Amoxicillin/K Clav Tab [Augmentin 1 tab PO Q12HR 07/05/19 07/05/19 Unknown History 875 mg] Aspirin EC [Ecotrin] 325 mg PO QDAY 07/05/19 07/05/19 Unknown History AtorvaSTATin [Lipitor] 20 mg PO QHS 07/05/19 07/05/19 Unknown History Clopidogrel [Plavix] 75 mg PO HS 07/05/19 07/05/19 Unknown History Docusate Sodium [Colace] 100 mg PO BID PRN 07/05/19 07/05/19 Unknown History FLUoxetine [PROzac] 20 mg PO QDAY 07/05/19 07/05/19 Unknown History Folic Acid 1 mg PO DAILY 07/05/19 07/05/19 Unknown History Gabapentin [Neurontin] 400 mg PO BID 07/05/19 07/05/19 Unknown History Gabapentin [Neurontin] 800 mg PO TID 07/05/19 07/05/19 Unknown History ISOSORBIDE MONOnitrate [Imdur ER] 30 mg PO DAILY 07/05/19 07/05/19 Unknown History Metoprolol [Lopressor TAB] 50 mg PO BID 07/05/19 07/05/19 Unknown History Multivitamin [One Daily 1 each PO DAILY 07/05/19 07/05/19 Unknown History Multivitamin] Oxazepam 15 mg PO QID 07/05/19 07/05/19 Unknown History Oxazepam [Serax] 15 mg PO BID 07/05/19 07/05/19 Unknown History Oxazepam [Serax] 30 mg PO QID 07/05/19 07/05/19 Unknown History Paliperidone Palmitate(Nf) [Invega 234 mg IM DAILY 07/05/19 07/05/19 Unknown History Sustenna(Nf)] carBAMazepine [TEGretol] 200 mg PO Q12HR 07/05/19 07/05/19 Unknown History diphenhydrAMINE [Benadryl CAP] 50 mg PO Q4H PRN 07/05/19 07/05/19 Unknown History haloperidoL [Haldol] 5 mg PO Q4H PRN 07/05/19 07/05/19 Unknown History hydrOXYzine PAMOATE [Vistaril] 25 mg PO Q6HR PRN 07/05/19 07/05/19 Unknown History lisinopriL [Zestril] 20 mg PO QDAY 07/05/19 07/05/19 Unknown History risperiDONE [RisperDAL] 3 mg PO HS 07/05/19 07/05/19 Unknown History Active Meds: Active Medications Acetaminophen (Tylenol) 650 mg PO Q4H PRN PRN Reason: Pain MILD(1-3)/Fever >100.5/HINES Aspirin (Halfprin Ec) 81 mg PO QDAY [facility] Last Admin: 07/07/19 10:11 Dose: 81 mg Documented by: Atorvastatin Calcium (Lipitor) 40 mg PO QHS [facility] Last Admin: 07/06/19 21:40 Dose: 40 mg Documented by: Clopidogrel Bisulfate (Plavix) 75 mg PO DAILY [facility] Last Admin: 07/07/19 10:10 Dose: 75 mg Documented by: Enoxaparin Sodium (Enoxaparin) 90 mg 1 mg/kg (90 mg) SUB-Q Q12HR [facility] Last Admin: 07/07/19 10:11 Dose: 90 mg Documented by: Isosorbide Mononitrate (Imdur) 30 mg PO QDAY [facility] Last Admin: 07/07/19 10:11 Dose: 30 mg Documented by: Lisinopril (Zestril) 5 mg PO QDAY [facility] Last Admin: 07/07/19 10:11 Dose: 5 mg Documented by: Metoprolol Succinate (Metoprolol Xl) 25 mg PO QDAY [facility] Last Admin: 07/07/19 10:11 Dose: 25 mg Documented by: Morphine Sulfate (Morphine) 2 mg IV Q4H PRN PRN Reason: Pain, Moderate (4-6) Last Admin: 07/07/19 11:13 Dose: 2 mg Documented by: Ondansetron HCl (Zofran) 4 mg IV Q4H PRN PRN Reason: Nausea And Vomiting Sodium Chloride (Sodium Chloride Flush Syringe 10 Ml) 10 ml IV BID IRAIS Last Admin: 07/07/19 10:11 Dose: 10 ml Documented by: Sodium Chloride (Sodium Chloride Flush Syringe 10 Ml) 10 ml IV PRN PRN PRN Reason: LINE FLUSH Stop: 07/08/19 22:09 Mental Status Exam - Vital signs Last Vital Signs Temp 97.7 F 07/07/19 08:52 Pulse 61 07/07/19 08:52 Resp 18 07/07/19 08:52 BP 135/79 07/07/19 08:52 Pulse Ox 94 07/07/19 08:52 Results Result Diagrams: 07/06/19 04:26 07/06/19 04:26 All other labs normal.
[2019-07-07] MEDS: FLUoxetine 10 MG TAB PO SCH (13:21)
[2019-07-07] MEDS: GABAPENTIN 400 MG CAP PO SCH ×2 (13:21→21:12)
--- NOTE | 2019-07-07 13:29 | Progress Note ---
Assessment and Plan - Patient Problems (1) Chest pain Current Visit: Yes Status: Acute Qualifiers: Chest pain type: unspecified Qualified Code(s): R07.9 - Chest pain, unspecified Plan to address problem: Patient has coronary artery disease, is currently admitted to [facility] for alcohol abuse and suicide ideation. He was transferred to the hospital from [place] for complaint of nonexertional, atypical and poorly characterized chest pain. ECG, cardiac enzymes have all been negative. He reports a coronary intervention procedure at the hospital in [place] just one month ago. Since then, he has been fully compliant with his Plavix therapy. On this presentation there is no clinical, EKG or laboratory evidence of subacute stent thrombosis. We will continue guideline directed medical therapy, including his dual oral antiplatelet therapy. Otherwise, he is stable for return to the psychiatric center, no further cardiac workup is indicated. Subjective Date of service: 07/07/19 Interval history: Patient is comfortable, no cardiac complaints. Objective Vital Signs Temp Pulse Resp BP Pulse Ox 07/07/19 13:01 97.8 F 63 18 131/67 98 07/07/19 08:52 97.7 F 61 18 135/79 94 07/07/19 08:33 96 07/07/19 04:00 49 L 07/07/19 03:43 97.6 F 63 18 116/79 94 07/07/19 00:10 97.5 F L 54 L 16 115/56 91 07/06/19 21:57 94 07/06/19 19:10 97.5 F L 61 16 114/66 95 07/06/19 17:56 97.7 F 64 18 124/76 96 07/06/19 16:00 76 - Physical Examination General: Appears Well, No Apparent Distress HEENT: Positive: PERRL Neck: Positive: neck supple Cardiac: Positive: Reg Rate and Rhythm Lungs: Positive: clear to auscultation Neuro: Positive: Grossly Intact Abdomen: Positive: Soft Skin: Positive: Clear Extremities: Absent: edema - Imaging and Cardiology EKG: report reviewed
[2019-07-07] MEDS: traZODone 50 MG TAB PO SCH (21:13)
[2019-07-08] MEDS: MORPHINE 2 MG/1 ML INJ IV PRN ×4 (05:50→20:47)
--- NOTE | 2019-07-08 08:48 | Discharge Summary ---
Providers - Providers Date of Admission: 07/06/19 13:54 Date of discharge: 07/08/19 Attending physician: ELIJAH HAGER 07/05/19 22:10 Consult to Physician [CONS] Routine Comment: Consulting Provider: SANTIAGO MIN Physician Instructions: Reason For Exam: cp/cad 07/06/19 14:44 psychiatry consult [Consult to Mental Health] [CONS] Routine Reason For Exam: Suicidal ideation Hospitalization Condition: Fair Disposition: [id number]/[place]-[id number] PSY HOSP/PSY UNIT Time spent for discharge: 32 min Exam - Constitutional Vitals: Temp Pulse Resp BP Pulse Ox 98.0 F 63 18 129/79 93 07/08/19 08:37 07/08/19 08:37 07/08/19 08:37 07/08/19 08:37 07/08/19 08:37 Plan Activity: advance as tolerated Diet: other (cardiac diet) Additional Instructions: Patient medically stable for discharge and transfer to [place] psych facility today. Cardiology cleared for discharge and transfer to psych facility Follow up with: JOSE ANTONIO TUBBS [Other] - 7 Days SANTIAGO MIN MD [Staff Physician] - 14 Days
[2019-07-08] MEDS: CLOPIDOGREL 75 MG TAB PO SCH (10:21)
[2019-07-08] MEDS: ENOXAPARIN 100 MG/1 ML INJ SUB-Q SCH ×2 (10:21→22:42)
[2019-07-08] MEDS: METOPROLOL SUCCINATE XL 25 MG TAB PO SCH (10:21)
[2019-07-08] MEDS: FLUoxetine 10 MG TAB PO SCH (10:21)
[2019-07-08] MEDS: GABAPENTIN 400 MG CAP PO SCH ×3 (10:21→20:46)
[2019-07-08] MEDS: ASPIRIN EC 81 MG TAB PO SCH (10:22)
[2019-07-08] MEDS: LISINOPRIL 5 MG TAB PO SCH (10:22)
--- NOTE | 2019-07-08 15:13 | Progress Note ---
Assessment and Plan - Patient Problems (1) Chest pain Current Visit: Yes Status: Acute Qualifiers: Chest pain type: unspecified Qualified Code(s): R07.9 - Chest pain, unspecified Plan to address problem: Patient has coronary artery disease, is currently admitted to [facility] for alcohol abuse and suicide ideation. He was transferred to the hospital from [place] for complaint of nonexertional, atypical and poorly characterized chest pain. ECG, cardiac enzymes have all been negative. He reports a coronary intervention procedure at the hospital in [place] just one month ago. Since then, he has been fully compliant with his Plavix therapy. On this presentation there is no clinical, EKG or laboratory evidence of subacute stent thrombosis. We will continue guideline directed medical therapy, including his dual oral antiplatelet therapy. Otherwise, he is stable for return to the psychiatric center, no further cardiac workup is indicated. Subjective Date of service: 07/08/19 Interval history: Patient is comfortable, no cardiac complaints. Objective Vital Signs Temp Pulse Resp BP Pulse Ox 07/08/19 08:37 98.0 F 63 18 129/79 93 07/08/19 03:26 98.0 F 56 L 18 113/65 93 07/07/19 20:09 98.3 F 61 18 120/74 96 07/07/19 16:01 97.3 F L 57 L 18 118/71 97 - Physical Examination General: Appears Well, No Apparent Distress HEENT: Positive: PERRL Neck: Positive: neck supple Cardiac: Positive: Reg Rate and Rhythm Lungs: Positive: Decreased Breath Sounds Neuro: Positive: Grossly Intact Abdomen: Positive: Soft Skin: Positive: Clear Extremities: Absent: edema - Imaging and Cardiology EKG: report reviewed
--- NOTE | 2019-07-08 18:16 | Progress Note ---
Assessment and Plan Assessment and plan: --Chest pain/coronary artery disease Cardiology evaluated the patient Advised to continue medical management Recommended no cardiac work-up Cleared for discharge --Suicidal and homicidal ideation Continue 1013, place with a sitter Psych evaluated the patient and recommended To transfer back to [place] when medically cleared Patient is medically stable for discharge --Hypertension; well controlled Continue current antihypertensives and PRN medications --Hyperlipidemia, statin low-cholesterol diet DVT prophylaxis Lovenox Initially discharge the patient, the nurse contacted [place] They informed that patient was discharged from their service And psych need to readmit the patient. Patient is unable to be discharged today We will check with psych and set up discharge planning Plan of care reviewed with the patient and his nurse Continue current management History Interval history: Patient seen and examined in his room at the bedside Patient feels better no new complaints Patient is medically stable, cardiology cleared for discharge Psych advised to transfer the patient to back to [place] However [facility] facility refused to take back the patient Saying the patient was discharged from their service, need to be readmitted by psychiatrist. Hospitalist Physical - Constitutional Vitals: Temp Pulse Resp BP Pulse Ox 98.0 F 63 18 129/79 93 07/08/19 08:37 07/08/19 08:37 07/08/19 08:37 07/08/19 08:37 07/08/19 08:37 General appearance: Present: no acute distress, well-nourished - EENT Eyes: Present: PERRL, EOM intact - Neck Neck: Present: supple, normal ROM - Respiratory Respiratory effort: normal Respiratory: bilateral: diminished, negative: rales, rhonchi, wheezing - Cardiovascular Rhythm: regular Heart Sounds: Present: S1 & S2 - Extremities Extremities: no ischemia, No edema - Abdominal General gastrointestinal: soft, non-tender, non-distended, normal bowel sounds - Integumentary Integumentary: Present: clear, warm - Psychiatric Psychiatric: appropriate mood/affect, cooperative - Neurologic Neurologic: moves all extremities BETY score - Bety Score Age > 65: (0) No Aspirin use within the Past 7 Days: (1) Yes 3 or more CAD Risk Factors: (1) Yes 2 or more Angina events in past 24 hrs: (0) No Known CAD with more than 50% Stenosis: (1) Yes Elevated Cardiac Markers: (0) No ST Deviation Greater than 0.5mm: (0) No BETY Score: 3 Results - Labs CBC & Chem 7: 07/06/19 04:26 07/06/19 04:26 Labs: Laboratory Last Values WBC 7.5 K/mm3 (4.5-11.0) 07/06/19 04:26 RBC 4.72 M/mm3 (3.65-5.03) 07/06/19 04:26 Hgb 14.2 gm/dl (11.8-15.2) 07/06/19 04:26 Hct 43.5 % (35.5-45.6) 07/06/19 04:26 MCV 92 fl (84-94) 07/06/19 04:26 MCH 30 pg (28-32) 07/06/19 04:26 MCHC 33 % (32-34) 07/06/19 04:26 RDW 13.9 % (13.2-15.2) 07/06/19 04:26 Plt Count 256 K/mm3 (140-440) 07/06/19 04:26 Lymph % (Auto) 31.4 % (13.4-35.0) 07/06/19 04:26 [place] % (Auto) 10.6 % (0.0-7.3) H 07/06/19 04:26 Eos % (Auto) 4.8 % (0.0-4.3) H 07/06/19 04:26 Baso % (Auto) 0.8 % (0.0-1.8) 07/06/19 04:26 Lymph # 2.3 K/mm3 (1.2-5.4) 07/06/19 04:26 Falls # 0.8 K/mm3 (0.0-0.8) 07/06/19 04:26 Eos # 0.4 K/mm3 (0.0-0.4) 07/06/19 04:26 Baso # 0.1 K/mm3 (0.0-0.1) 07/06/19 04:26 Seg Neutrophils % 52.4 % (40.0-70.0) 07/06/19 04:26 Seg Neutrophils # 3.9 K/mm3 (1.8-7.7) 07/06/19 04:26 Sodium 140 mmol/L (137-145) 07/06/19 04:26 Potassium 4.1 mmol/L (3.6-5.0) 07/06/19 04:26 Chloride 106.0 mmol/L (98-107) 07/06/19 04:26 Carbon Dioxide 20 mmol/L (22-30) L 07/06/19 04:26 Anion Gap 18 mmol/L 07/06/19 04:26 BUN 24 mg/dL (9-20) H 07/06/19 04:26 Creatinine 0.7 mg/dL (0.8-1.5) L 07/06/19 04:26 Estimated GFR > 60 ml/min 07/06/19 04:26 BUN/Creatinine Ratio 34 % 07/06/19 04:26 Glucose 106 mg/dL (75-100) H 07/06/19 04:26 Calcium 8.5 mg/dL (8.4-10.2) 07/06/19 04:26 Total Bilirubin < 0.20 mg/dL (0.1-1.2) 07/05/19 20:00 AST 22 units/L (5-40) 07/05/19 20:00 ALT 27 units/L (7-56) 07/05/19 20:00 Alkaline Phosphatase 101 units/L (35-129) 07/05/19 20:00 Total Creatine Kinase 92 units/L (55-170) 07/06/19 04:26 CK-MB (CK-2) 2.0 ng/mL (0.0-4.0) 07/06/19 04:26 CK-MB (CK-2) Rel Index 2.1 (0-4) 07/06/19 04:26 Troponin T < 0.010 ng/mL (0.00-0.029) 07/06/19 04:26 Total Protein 6.7 g/dL (6.3-8.2) 07/05/19 20:00 Albumin 3.9 g/dL (3.9-5) 07/05/19 20: Albumin/Globulin Ratio 1.4 % 07/05/19 20:00 Urine Color Yellow (Yellow) 07/05/19 20:11 Urine Turbidity Clear (Clear) 07/05/19 20:11 Urine pH 6.0 (5.0-7.0) 07/05/19 20:11 Ur Specific [place] 1.019 (1.003-1.030) 07/05/19 20:11 Urine Protein <15 mg/dl mg/dL (Negative) 07/05/19 20:11 Urine Glucose (UA) Neg mg/dL (Negative) 07/05/19 20:11 Urine Ketones Neg mg/dL (Negative) 07/05/19 20:11 Urine Blood Neg (Negative) 07/05/19 20:11 Urine Nitrite Neg (Negative) 07/05/19 20:11 Urine Bilirubin Neg (Negative) 07/05/19 20:11 Urine Urobilinogen < 2.0 mg/dL (<2.0) 07/05/19 20:11 Ur Leukocyte Esterase Neg (Negative) 07/05/19 20:11 Urine WBC (Auto) 1.0 /HPF (0.0-6.0) 07/05/19 20:11 Urine RBC (Auto) 1.0 /HPF (0.0-6.0) 07/05/19 20:11 Urine Opiates Screen Presumptive negative 07/05/19 20:11 Urine Methadone Screen Presumptive negative 07/05/19 20:11 Ur Barbiturates Screen Presumptive negative 07/05/19 20:11 Ur Phencyclidine Scrn Presumptive negative 07/05/19 20:11 Ur Amphetamines Screen Presumptive negative 07/05/19 20:11 U Benzodiazepines Scrn Presumptive positive 07/05/19 20:11 Urine Cocaine Screen Presumptive negative 07/05/19 20:11 U Marijuana (THC) Screen Presumptive negative 07/05/19 20:11 Drugs of Abuse Note Disclamer 07/05/19 20:11 Active Medications - Current Medications Current Medications: Generic Name Dose Route Start Last Admin Trade Name Freq PRN Reason Stop Dose Admin Acetaminophen 650 mg 07/05/19 22:10 Tylenol PO Q4H PRN Pain MILD(1-3)/Fever >100.5/HINES Aspirin 81 mg 07/06/19 10:00 07/08/19 10:22 Halfprin Ec PO 81 mg QDAY IRAIS Administration Atorvastatin Calcium 40 mg 07/06/19 22:00 07/07/19 21:13 Lipitor PO 40 mg QHS IRAIS Administration Clopidogrel Bisulfate 75 mg 07/06/19 10:00 07/08/19 10:21 Plavix PO 75 mg DAILY IRAIS Administration Enoxaparin Sodium 90 mg 07/06/19 10:00 07/08/19 10:21 Enoxaparin 1 mg/kg (90 mg) 90 mg SUB-Q Administration Q12HR RIAIS Fluoxetine HCl 30 mg 07/07/19 14:00 07/08/19 10:21 Prozac PO 30 mg QDAY IRAIS Administration Gabapentin 800 mg 07/07/19 14:00 07/08/19 10:21 Gabapentin PO 800 mg TID IRAIS Administration Isosorbide Mononitrate 30 mg 07/06/19 10:00 07/08/19 10:21 Imdur PO 30 mg QDAY IRAIS Administration Lisinopril 5 mg 07/06/19 10:00 07/08/19 10:22 Zestril PO 5 mg QDAY IRAIS Administration Metoprolol Succinate 25 mg 07/06/19 10:00 07/08/19 10:21 Metoprolol Xl PO 25 mg QDAY IRAIS Administration Morphine Sulfate 2 mg 07/05/19 22:10 07/08/19 15:33 Morphine IV 2 mg Q4H PRN Administration Pain, Moderate (4-6) Ondansetron HCl 4 mg 07/05/19 22:10 Zofran IV Q4H PRN Nausea And Vomiting Sodium Chloride 10 ml 07/06/19 10:00 07/07/19 21:13 Sodium Chloride Flush Syringe 10 Ml IV 10 ml BID IRAIS Administration Sodium Chloride 10 ml 07/05/19 22:10 Sodium Chloride Flush Syringe 10 Ml IV 07/08/19 22:09 PRN PRN LINE FLUSH Trazodone HCl 50 mg 07/07/19 22:00 07/07/19 21:13 Desyrel PO 50 mg QHS IRAIS Administration
[2019-07-08] MEDS: traZODone 50 MG TAB PO SCH (22:42)
[2019-07-09] MEDS: MORPHINE 2 MG/1 ML INJ IV PRN (08:56)
[2019-07-09] MEDS: ASPIRIN EC 81 MG TAB PO SCH (09:00)
[2019-07-09] MEDS: LISINOPRIL 5 MG TAB PO SCH (09:00)
[2019-07-09] MEDS: ENOXAPARIN 100 MG/1 ML INJ SUB-Q SCH (09:01)
[2019-07-09] MEDS: CLOPIDOGREL 75 MG TAB PO SCH (09:01)
[2019-07-09] MEDS: METOPROLOL SUCCINATE XL 25 MG TAB PO SCH (09:01)
[2019-07-09] MEDS: GABAPENTIN 400 MG CAP PO SCH ×2 (09:01→13:30)
[2019-07-09 09:02] VITALS: BP 146/67
[2019-07-09] MEDS: FLUoxetine 10 MG TAB PO SCH (09:02)
--- NOTE | 2019-07-09 13:58 | Progress Note ---
Subjective Date of service: 07/09/19 Principal diagnosis: psychiatric assessment Subjective Comment: Mr. Rocha was in his room sitting on the side of the bed, the patient is alert oriented x3 he is able to make needs known he maintains eye contact. The patient denies suicidal or homicidal ideations the patient contract for safety. The patient denies seeing or hearing things. The patient report that he is sleeping and eating well. The patient denies any form of depressive symptoms. The patient asked this documentation writer if the facility does not take him back if he is okay to go home this documentation writer stated yes. The patient stated, "well I might just get suicidal and come back". When this documentation writer asked the patient how do you know you will get suicidal the patient stated, because it always happens". ROS: Constitutional: Negative for weight loss ENT: Negative for stridor Respiratory: Negative for cough or hemoptysis All other systems reviewed and are negative MENTAL STATUS General Appearance and Behavior: age appropriate, good eye contact, cooperative with questioning and polite Cooperation: Cooperative Psychomotor Behavior: within normal limits Mood: OK Affect and affective range: Congruent with stated mood Thought Process: Fluent/Logical and Goal-directed Thought Content: Within reality Speech: Normal volume and Regular rate and rhythm Intellectual Functioning Average Suicidal Ideation: Denies SI Homicidal Ideation: Denies HI Impulse Control: intact Insight and Judgment: normal insight and judgment Memory: Normal Attention: Normal Orientation: alert and orientedx3 RECOMMENDATIONS MEDICATIONS: continue psychiatric medications Risks, benefits and alternatives of medications discussed with the patient, questions answered and consent obtained from patient. PSYCHOTHERAPY: Supportive psychotherapy provided MEDICAL: Per primary team DELIRIUM PRECAUTIONS: Please re-orient patient frequently, keep lights on during the day, and minimize benzodiazepines and opiates as these medications could worsen patient's confusion. 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: DISPOSITION: No indication for inpatient psychiatric hospitalization at this time LEGAL STATUS: d/c 1013 FOLLOW-UP: sign off Medications and Allergies Allergies Allergy/AdvReac Type Severity Reaction Status Date / Time No Known Allergies Allergy Verified 07/05/19 22:04 Home Medications Medication Instructions Recorded Confirmed Last Taken Type Amoxicillin/K Clav Tab [Augmentin 1 tab PO Q12HR 07/05/19 07/05/19 Unknown History 875MG TAB] Aspirin EC [Ecotrin] 325 mg PO QDAY 07/05/19 07/05/19 Unknown History AtorvaSTATin [Lipitor] 20 mg PO QHS 07/05/19 07/05/19 Unknown History Clopidogrel [Plavix] 75 mg PO HS 07/05/19 07/05/19 Unknown History Docusate Sodium [Colace CAP] 100 mg PO BID PRN 07/05/19 07/05/19 Unknown History FLUoxetine [PROzac] 20 mg PO QDAY 07/05/19 07/05/19 Unknown History Folic Acid 1 mg PO DAILY 07/05/19 07/05/19 Unknown History Gabapentin [Neurontin] 400 mg PO BID 07/05/19 07/05/19 Unknown History ISOSORBIDE MONOnitrate [Imdur ER] 30 mg PO DAILY 07/05/19 07/05/19 Unknown History Metoprolol [Lopressor TAB] 50 mg PO BID 07/05/19 07/05/19 Unknown History Multivitamin [One Daily 1 each PO DAILY 07/05/19 07/05/19 Unknown History Multivitamin] Oxazepam 15 mg PO QID 07/05/19 07/05/19 Unknown History Paliperidone Palmitate(Nf) [Invega 234 mg IM DAILY 07/05/19 07/05/19 Unknown History Sustenna(Nf)] carBAMazepine [TEGretol] 200 mg PO Q12HR 07/05/19 07/05/19 Unknown History diphenhydrAMINE [Benadryl CAP] 50 mg PO Q4H PRN 07/05/19 07/05/19 Unknown History haloperidoL [Haldol] 5 mg PO Q4H PRN 07/05/19 07/05/19 Unknown History hydrOXYzine PAMOATE [Vistaril] 25 mg PO Q6HR PRN 07/05/19 07/05/19 Unknown History lisinopriL [Zestril TAB] 20 mg PO QDAY 07/05/19 07/05/19 Unknown History risperiDONE [RisperDAL] 3 mg PO HS 07/05/19 07/05/19 Unknown History traZODone [Desyrel] 50 mg PO QHS tablet 07/08/19 Unknown Rx Active Meds: Active Medications Acetaminophen (Tylenol) 650 mg PO Q4H PRN PRN Reason: Pain MILD(1-3)/Fever >100.5/HINES Aspirin (Halfprin Ec) 81 mg PO QDAY IRAIS Last Admin: 07/09/19 09:00 Dose: 81 mg Documented by: Atorvastatin Calcium (Lipitor) 40 mg PO QHS [facility] Last Admin: 07/08/19 22:42 Dose: 40 mg Documented by: Clopidogrel Bisulfate (Plavix) 75 mg PO DAILY [facility] Last Admin: 07/09/19 09:01 Dose: 75 mg Documented by: Enoxaparin Sodium (Enoxaparin) 90 mg 1 mg/kg (90 mg) SUB-Q Q12HR [facility] Last Admin: 07/09/19 09:01 Dose: 90 mg Documented by: Fluoxetine HCl (Prozac) 30 mg PO QDAY [facility] Last Admin: 07/09/19 09:02 Dose: 30 mg Documented by: Gabapentin (Gabapentin) 800 mg PO TID [facility] Last Admin: 07/09/19 13:30 Dose: 800 mg Documented by: Isosorbide Mononitrate (Imdur) 30 mg PO QDAY [facility] Last Admin: 07/09/19 09:01 Dose: 30 mg Documented by: Lisinopril (Zestril) 5 mg PO QDAY [facility] Last Admin: 07/09/19 09:00 Dose: 5 mg Documented by: Metoprolol Succinate (Metoprolol Xl) 25 mg PO QDAY [facility] Last Admin: 07/09/19 09:01 Dose: 25 mg Documented by: Ondansetron HCl (Zofran) 4 mg IV Q4H PRN PRN Reason: Nausea And Vomiting Sodium Chloride (Sodium Chloride Flush Syringe 10 Ml) 10 ml IV BID [facility] Last Admin: 07/09/19 09:02 Dose: 10 ml Documented by: Trazodone HCl (Desyrel) 50 mg PO QHS [facility] Last Admin: 07/08/19 22:42 Dose: 50 mg Documented by: Results - Results Labs/Vitals: Laboratory Last Values WBC 7.5 K/mm3 (4.5-11.0) 07/06/19 04:26 RBC 4.72 M/mm3 (3.65-5.03) 07/06/19 04:26 Hgb 14.2 gm/dl (11.8-15.2) 07/06/19 04:26 Hct 43.5 % (35.5-45.6) 07/06/19 04:26 MCV 92 fl (84-94) 07/06/19 04:26 MCH 30 pg (28-32) 07/06/19 04:26 MCHC 33 % (32-34) 07/06/19 04:26 RDW 13.9 % (13.2-15.2) 07/06/19 04:26 Plt Count 256 K/mm3 (140-440) 07/06/19 04:26 Lymph % (Auto) 31.4 % (13.4-35.0) 07/06/19 04:26 [place] % (Auto) 10.6 % (0.0-7.3) H 07/06/19 04:26 Eos % (Auto) 4.8 % (0.0-4.3) H 07/06/19 04:26 Baso % (Auto) 0.8 % (0.0-1.8) 07/06/19 04:26 Lymph # 2.3 K/mm3 (1.2-5.4) 07/06/19 04:26 [place] # 0.8 K/mm3 (0.0-0.8) 07/06/19 04:26 Eos # 0.4 K/mm3 (0.0-0.4) 07/06/19 04:26 Baso # 0.1 K/mm3 (0.0-0.1) 07/06/19 04:26 Seg Neutrophils % 52.4 % (40.0-70.0) 07/06/19 04:26 Seg Neutrophils # 3.9 K/mm3 (1.8-7.7) 07/06/19 04:26 Sodium 140 mmol/L (137-145) 07/06/19 04:26 Potassium 4.1 mmol/L (3.6-5.0) 07/06/19 04:26 Chloride 106.0 mmol/L (98-107) 07/06/19 04:26 Carbon Dioxide 20 mmol/L (22-30) L 07/06/19 04:26 Anion Gap 18 mmol/L 07/06/19 04:26 BUN 24 mg/dL (9-20) H 07/06/19 04:26 Creatinine 0.7 mg/dL (0.8-1.5) L 07/06/19 04:26 Estimated GFR > 60 ml/min 07/06/19 04:26 BUN/Creatinine Ratio 34 % 07/06/19 04:26 Glucose 106 mg/dL (75-100) H 07/06/19 04:26 Calcium 8.5 mg/dL (8.4-10.2) 07/06/19 04:26 Total Bilirubin < 0.20 mg/dL (0.1-1.2) 07/05/19 20:00 AST 22 units/L (5-40) 07/05/19 20:00 ALT 27 units/L (7-56) 07/05/19 20:00 Alkaline Phosphatase 101 units/L (35-129) 07/05/19 20:00 Total Creatine Kinase 92 units/L (55-170) 07/06/19 04:26 CK-MB (CK-2) 2.0 ng/mL (0.0-4.0) 07/06/19 04:26 CK-MB (CK-2) Rel Index 2.1 (0-4) 07/06/19 04:26 Troponin T < 0.010 ng/mL (0.00-0.029) 07/06/19 04:26 Total Protein 6.7 g/dL (6.3-8.2) 07/05/19 20:00 Albumin 3.9 g/dL (3.9-5) 07/05/19 20: Albumin/Globulin Ratio 1.4 % 07/05/19 20: Urine Color Yellow (Yellow) 07/05/19 20: Urine Turbidity Clear (Clear) 07/05/19 20: Urine pH 6.0 (5.0-7.0) 07/05/19 20: Ur Specific [place] 1.019 (1.003-1.030) 07/05/19 20: Urine Protein <15 mg/dl mg/dL (Negative) 07/05/19 20: Urine Glucose (UA) Neg mg/dL (Negative) 07/05/19 20: Urine Ketones Neg mg/dL (Negative) 07/05/19 20: Urine Blood Neg (Negative) 07/05/19 20: Urine Nitrite Neg (Negative) 07/05/19 20: Urine Bilirubin Neg (Negative) 07/05/19 20: Urine Urobilinogen < 2.0 mg/dL (<2.0) 07/05/19 20: Ur Leukocyte Esterase Neg (Negative) 07/05/19 20:11 Urine WBC (Auto) 1.0 /HPF (0.0-6.0) 07/05/19 20:11 Urine RBC (Auto) 1.0 /HPF (0.0-6.0) 07/05/19 20:11 Urine Opiates Screen Presumptive negative 07/05/19 20:11 Urine Methadone Screen Presumptive negative 07/05/19 20:11 Ur Barbiturates Screen Presumptive negative 07/05/19 20:11 Ur Phencyclidine Scrn Presumptive negative 07/05/19 20:11 Ur Amphetamines Screen Presumptive negative 07/05/19 20:11 U Benzodiazepines Scrn Presumptive positive 07/05/19 20:11 Urine Cocaine Screen Presumptive negative 07/05/19 20:11 U Marijuana (THC) Screen Presumptive negative 07/05/19 20:11 Drugs of Abuse Note Disclamer 07/05/19 20:11 Last Vital Signs Temp 97.5 F L 07/09/19 03:52 Pulse 64 07/09/19 09:01 Resp 18 07/09/19 10:00 BP 146/67 07/09/19 09:01 Pulse Ox 94 07/09/19 03:52
[2019-07-09] MEDS ORDERED: MORPHINE 2 MG/1 ML INJ IM ONE (14:32)
--- NOTE | 2019-07-09 15:42 | Discharge Summary ---
Providers - Providers Date of Admission: 07/06/19 13:54 Date of discharge: 07/09/19 Attending physician: ELIJAH HAGER 07/05/19 22:10 Consult to Physician [CONS] Routine Comment: Consulting Provider: SANTIAGO MIN Physician Instructions: Reason For Exam: cp/cad 07/06/19 14:44 psychiatry consult [Consult to Mental Health] [CONS] Routine Reason For Exam: Suicidal ideation Hospitalization Condition: Fair Disposition: DC-01 TO HOME OR SELFCARE Time spent for discharge: 35 min Core Measure Documentation - Palliative Care Palliative Care/ Comfort Measures: Not Applicable - Core Measures Any of the following diagnoses?: none Exam - Constitutional Vitals: Temp Pulse Resp BP Pulse Ox 97.5 F L 64 18 146/67 94 07/09/19 03:52 07/09/19 09:01 07/09/19 10:00 07/09/19 09:01 07/09/19 03:52 General appearance: Present: no acute distress, well-nourished - EENT Eyes: Present: PERRL, EOM intact - Neck Neck: Present: supple, normal ROM - Respiratory Respiratory effort: normal Respiratory: bilateral: diminished, negative: rales, rhonchi, wheezing - Cardiovascular Rhythm: regular Heart Sounds: Present: S1 & S2 - Extremities Extremities: no ischemia, No edema - Abdominal General gastrointestinal: Present: soft, non-tender, non-distended, normal bowel sounds - Integumentary Integumentary: Present: clear, warm - Musculoskeletal Musculoskeletal: strength equal bilaterally - Psychiatric Psychiatric: appropriate mood/affect, cooperative - Neurologic Neurologic: CNII-XII intact, moves all extremities Plan Activity: advance as tolerated Diet: other (cardiac diet) Special Instructions: smoking cessation Additional Instructions: [facility] 1 week. Follow-up private psychiatrist in 1 to 2 weeks Follow up with: JOSE ANTONIO TUBBS [Other] - 7 Days SANTIAGO MIN MD [Staff Physician] - 14 Days Prescriptions: Folic Acid 1 mg PO DAILY #30 Aspirin EC [Halfprin EC] 81 mg PO QDAY #30 tablet AtorvaSTATin [Lipitor] 40 mg PO QHS #30 tablet Metoprolol Xl [Metoprolol SUCCINATE ER TAB] 25 mg PO QDAY #30 tablet Gabapentin [Neurontin] 400 mg PO BID #20 oxyCODONE /ACETAMINOPHEN [Percocet 5/325] 1 tab PO QHS PRN #7 tablet PRN Reason: Pain , Severe (7-10) Clopidogrel [Plavix] 75 mg PO DAILY #30 tablet FLUoxetine [PROzac] 20 mg PO QDAY #30 cap lisinopriL [Zestril TAB] 5 mg PO QDAY #30 tablet
== END 2019-07-09 17:17 | disposition home or self-care (01) | DRG 313 ==
LOC: ED 19:26 → 4A 21:57 → OBSVTOIN 07-06 13:54
PROVIDERS: ADMIT Internal Medicine; ATTEND Internal Medicine
DX: R07.89 Other chest pain (principal); I25.10 Atherosclerotic heart disease of native coronary artery without angina pectoris; I10 Essential (primary) hypertension; F10.10 Alcohol abuse, uncomplicated; Y90.9 Presence of alcohol in blood, level not specified; F32.9 Major depressive disorder, single episode, unspecified; F41.9 Anxiety disorder, unspecified; E78.5 Hyperlipidemia, unspecified; G89.29 Other chronic pain; F17.200 Nicotine dependence, unspecified, uncomplicated; I25.2 Old myocardial infarction; Z86.73 Personal history of transient ischemic attack (TIA), and cerebral infarction without residual deficits; Z79.82 Long term (current) use of aspirin; Z79.899 Other long term (current) drug therapy; Z95.5 Presence of coronary angioplasty implant and graft; Z82.49 Family history of ischemic heart disease and other diseases of the circulatory system
CPT/HCPCS: 36415; 71045; 80048; 80053; 80307; 81001; 82550; 82553; 84484; 85025; 87116; 93005; 93010; 96365; G0378; A9270-GY; J1650; J2270

== ENCOUNTER 2019-07-09 21:29 | Emergency (ER) | payer SELFPAY ==
--- NOTE | 2019-07-09 21:43 | Emergency Department Report ---
Blank Doc - Documentation Documentation: 53-year-old male that presents with chest pain with radiation to jaw and left arm. This initial assessment/diagnostic orders/clinical plan/treatment(s) is/are subject to change based on patient's health status, clinical progression and re- assessment by fellow clinical providers in the ED. Further treatment and workup at subsequent clinical providers discretion. Patient/guardians urged not to elope from the ED as their condition may be serious if not clinically assessed a nd managed. Initial orders include: 1- Patient sent to MAIN ED for further evaluation and treatment 2- cardiac protocol
--- NOTE | 2019-07-09 22:43 | XRay Report ---
CHEST 2 VIEWS INDICATION / CLINICAL INFORMATION: Chest Pain. COMPARISON: 07/05/2019 FINDINGS: SUPPORT DEVICES: None. HEART / MEDIASTINUM: No significant abnormality. A coronary stent is noted. LUNGS / PLEURA: No significant pulmonary or pleural abnormality. .No pneumothorax. ADDITIONAL FINDINGS: No significant additional findings. IMPRESSION: 1. No acute findings. Signer Name: Sergey Wilson MD Signed: 07/09/2019 10:38 PM Workstation Name: [id number]
[2019-07-09 23:55] LABS: Basophils # (Auto) 0.1 K/mm3 (0.0-0.1); Basophils % (Auto) 1.1 % (0.0-1.8); Eosinophils # (Auto) 0.3 K/mm3 (0.0-0.4); Eosinophils % (Auto) 3.1 % (0.0-4.3); Hematocrit 43.4 % (35.5-45.6); Lymphocytes # (Auto) 2.7 K/mm3 (1.2-5.4); Lymphocytes % (Auto) 32.1 % (13.4-35.0); Mean Corpuscular HGB Conc 35 % (32-34); Mean Corpuscular Volume 91 fl (84-94); Monocytes # (Auto) 0.9 K/mm3 (0.0-0.8); Monocytes % (Auto) 10.1 % (0.0-7.3); Platelet Count 236 K/mm3 (140-440); Red Blood Count 4.78 M/mm3 (3.65-5.03)
[2019-07-10 00:11] LABS: INR 1.08 (0.87-1.13)
[2019-07-10 00:12] LABS: Partial Thromboplastin Time 30.8 Sec. (24.2-36.6)
[2019-07-10 00:23] LABS: Alanine Aminotransferase 26 units/L (7-56); Albumin 4.2 g/dL (3.9-5); BUN/Creatinine Ratio 21; Blood Urea Nitrogen 17 mg/dL (9-20); Calcium 9.6 mg/dL (8.4-10.2); Hemolysis Index 7
--- NOTE | 2019-07-10 00:50 | Emergency Department Report ---
ED Chest Pain HPI - General Chief Complaint: Chest Pain Stated Complaint: CP/JAW PAIN/LT ARM PAIN Time Seen by Provider: 07/09/19 21:43 Source: patient Mode of arrival: Ambulatory Limitations: No Limitations - History of Present Illness Initial Comments: 53-year-old male with a past medical history of hypertension, seizure disorder, hypercholesterolemia, CVA 2 years ago, myocardial infarction x2 with 6-day history presents to the emergency department complaining 1 week history of chest pain that has been worsening since 5 AM today. Pain is said the substernal area and radiates to the left arm and jaw improves after taking 2-3 nitroglycerin tablets. Reports no fever, chills, sweats no cough no wheezing no lower extremity swelling. MD Complaint: chest pain Pain Radiation: jaw/teeth Severity: mild Quality: aching, dull Consistency: constant Worsens With: nothing Treatments Prior to Arrival: nitroglycerin - Related Data Home Medications Medication Instructions Recorded Confirmed Last Taken ISOSORBIDE MONOnitrate [Imdur ER] 30 mg PO DAILY 07/05/19 07/05/19 Unknown Multivitamin [One Daily 1 each PO DAILY 07/05/19 07/05/19 Unknown Multivitamin] Oxazepam 15 mg PO QID 07/05/19 07/05/19 Unknown Paliperidone Palmitate(Nf) [Invega 234 mg IM DAILY 07/05/19 07/05/19 Unknown Sustenna(Nf)] carBAMazepine [TEGretol] 200 mg PO Q12HR 07/05/19 07/05/19 Unknown diphenhydrAMINE [Benadryl CAP] 50 mg PO Q4H PRN 07/05/19 07/05/19 Unknown haloperidoL [Haldol] 5 mg PO Q4H PRN 07/05/19 07/05/19 Unknown hydrOXYzine PAMOATE [Vistaril] 25 mg PO Q6HR PRN 07/05/19 07/05/19 Unknown lisinopriL [Zestril TAB] 20 mg PO QDAY 07/05/19 07/05/19 Unknown Previous Rx's Medication Instructions Recorded Last Taken Type Aspirin EC [Halfprin EC] 81 mg PO QDAY #30 tablet 07/09/19 Unknown Rx AtorvaSTATin [Lipitor] 40 mg PO QHS #30 tablet 07/09/19 Unknown Rx Clopidogrel [Plavix] 75 mg PO DAILY #30 tablet 07/09/19 Unknown Rx FLUoxetine [PROzac] 20 mg PO QDAY #30 cap 07/09/19 Unknown Rx Folic Acid 1 mg PO DAILY #30 07/09/19 Unknown Rx Gabapentin [Neurontin] 400 mg PO BID #20 07/09/19 Unknown Rx Metoprolol Xl [Metoprolol 25 mg PO QDAY #30 tablet 07/09/19 Unknown Rx SUCCINATE ER TAB] lisinopriL [Zestril TAB] 5 mg PO QDAY #30 tablet 07/09/19 Unknown Rx oxyCODONE /ACETAMINOPHEN [Percocet 1 tab PO QHS PRN #7 tablet 07/09/19 Unknown Rx 5/325] Allergies Allergy/AdvReac Type Severity Reaction Status Date / Time No Known Allergies Allergy Verified 07/05/19 22:04 Heart Score - HEART Score History: Slightly suspicious EKG: Non-specific Age: 45-65 Risk factors: 1-2 risk factors Troponin: < normal limit HEART Score: 3 ED Review of Systems ROS: Stated complaint: CP/JAW PAIN/LT ARM PAIN Other details as noted in HPI Comment: All other systems reviewed and negative ED Past Medical Hx - Past Medical History Previous Medical History?: Yes Hx Hypertension: Yes Hx CVA: Yes Hx Heart Attack/AMI: Yes Hx Congestive Heart Failure: No Hx Seizures: Yes Hx Psychiatric Treatment: Yes Additional medical history: alcohol wothdrawal seizure, TIA, CAD, chronic pain, hyperlipidemia - Surgical History Hx Coronary Stent: Yes (4 THEN 2 REPLACEMENTS) Hx Appendectomy: Yes Additional Surgical History: hernia, lower lumbar sx, R orbital sx - Social History Smoking Status: Current Every Day Smoker Substance Use Type: None - Medications Home Medications: Home Medications Medication Instructions Recorded Confirmed Last Taken Type ISOSORBIDE MONOnitrate [Imdur ER] 30 mg PO DAILY 07/05/19 07/05/19 Unknown History Multivitamin [One Daily 1 each PO DAILY 07/05/19 07/05/19 Unknown History Multivitamin] Oxazepam 15 mg PO QID 07/05/19 07/05/19 Unknown History Paliperidone Palmitate(Nf) [Invega 234 mg IM DAILY 07/05/19 07/05/19 Unknown History Sustenna(Nf)] carBAMazepine [TEGretol] 200 mg PO Q12HR 07/05/19 07/05/19 Unknown History diphenhydrAMINE [Benadryl CAP] 50 mg PO Q4H PRN 07/05/19 07/05/19 Unknown History haloperidoL [Haldol] 5 mg PO Q4H PRN 07/05/19 07/05/19 Unknown History hydrOXYzine PAMOATE [Vistaril] 25 mg PO Q6HR PRN 07/05/19 07/05/19 Unknown History lisinopriL [Zestril TAB] 20 mg PO QDAY 07/05/19 07/05/19 Unknown History Aspirin EC [Halfprin EC] 81 mg PO QDAY #30 tablet 07/09/19 Unknown Rx AtorvaSTATin [Lipitor] 40 mg PO QHS #30 tablet 07/09/19 Unknown Rx Clopidogrel [Plavix] 75 mg PO DAILY #30 tablet 07/09/19 Unknown Rx FLUoxetine [PROzac] 20 mg PO QDAY #30 cap 07/09/19 Unknown Rx Folic Acid 1 mg PO DAILY #30 07/09/19 Unknown Rx Gabapentin [Neurontin] 400 mg PO BID #20 07/09/19 Unknown Rx Metoprolol Xl [Metoprolol 25 mg PO QDAY #30 tablet 07/09/19 Unknown Rx SUCCINATE ER TAB] lisinopriL [Zestril TAB] 5 mg PO QDAY #30 tablet 07/09/19 Unknown Rx oxyCODONE /ACETAMINOPHEN [Percocet 1 tab PO QHS PRN #7 tablet 07/09/19 Unknown Rx 5/325] ED Physical Exam - General Limitations: No Limitations General appearance: alert, in no apparent distress - Head Head exam: Present: atraumatic, normocephalic - Eye Eye exam: Present: normal appearance, PERRL, EOMI Pupils: Present: normal accommodation - ENT ENT exam: Present: normal exam, normal orophraynx, mucous membranes moist, TM's normal bilaterally - Neck Neck exam: Present: normal inspection - Respiratory Respiratory exam: Present: normal lung sounds bilaterally. Absent: respiratory distress - Cardiovascular Cardiovascular Exam: Present: regular rate, normal rhythm. Absent: systolic murmur, diastolic murmur, rubs, gallop - GI/Abdominal GI/Abdominal exam: Present: soft, normal bowel sounds - Rectal Rectal exam: Present: deferred - Extremities Exam Extremities exam: Present: normal inspection - Back Exam Back exam: Present: normal inspection - Neurological Exam Neurological exam: Present: alert, oriented X3 - Psychiatric Psychiatric exam: Present: normal affect, normal mood - Skin Skin exam: Present: warm, dry, intact, normal color. Absent: rash ED Course Vital Signs 07/09/19 07/09/19 21:33 21:43 Temperature 97.4 F L 97.4 F L Pulse Rate 79 82 Respiratory 18 18 Rate Blood Pressure 152/94 152/94 O2 Sat by Pulse 97 96 Oximetry BETY score - Bety Score Age > 65: (0) No Aspirin use within the Past 7 Days: (1) Yes 3 or more CAD Risk Factors: (1) Yes 2 or more Angina events in past 24 hrs: (0) No Known CAD with more than 50% Stenosis: (1) Yes Elevated Cardiac Markers: (0) No ST Deviation Greater than 0.5mm: (0) No BETY Score: 3 ED Medical Decision Making - Lab Data Result diagrams: 07/09/19 23:41 07/09/19 23:41 - Radiology Data Radiology results: report reviewed No acute findings - Medical Decision Making The patient presented with chest pain of uncertain etiology. Based on their history, lab analysis, EKG (which showed no evidence of ischemia or infarction), and imaging, in addition to the patient's physical exam, I see no evidence at this time for a malignant etiology for the patient's chest pain. There is no acute evidence for pulmonary embolus, acute myocardial infarction, pneumothorax, esophageal rupture, cardiac tamponade, thoracic artery dissection, or any other emergent cardiac, pulmonary or aortic pathology at this time. Mr. Rocha was recently seen at this facility for chest pain resulting in admission on July 05, 2019. He was discharged less than 24 hours ago and was cleared by cardiology at that time. On this visit his EKG remains unchanged and his cardiac work-up remains normal. He is ambulatory with no distress speaks in full sentences with no limitations Based on the nature and long duration of the patient's pain, paucity of EKG findings, and normal cardiac enzymatic blood analysis, acute coronary syndrome is exceedingly unlikely. It is highly likely that cardiac enzymes would be abnormal in chest pain of this duration if their chest pain was attributable to ACS.] [The patient also has very low risk for coronary artery disease based on their risk factor profile with no substantial risk factors (Age>65, >3 CAD risk factors -- family history of CAD, hypertension, hypercholesterolemia, diabetes, or current smoker, known CAD as defined by >50% stenosis, aspirin use in the past 7 days, severe angina having more than 2 episodes in the past 24 hours, ST changes >0.5mm, or positive cardiac biomarker).] HEART score 3. This patient may require cardiac stress testing on an outpatient basis and arrangements for this may be made during their follow-up visit with their primary care physician. The patient understands that at this time there is no evidence for a more malignant underlying process, but the patient also understands that early in the process of an illness, an emergency department workup can be falsely reassuring. Routine discharge counseling was given to the patient and the patient understands that worsening, changing, or persistent sym ptoms should prompt an immediate call or follow up with their primary physician or the emergency department immediately. The importance of close follow up was also discussed with the patient. Critical care attestation.: If time is entered above; I have spent that time in minutes in the direct care of this critically ill patient, excluding procedure time. ED Disposition Clinical Impression: Chest pain Disposition: DC-01 TO HOME OR SELFCARE Is pt being admited?: No Does the pt Need Aspirin: No Condition: Stable Instructions: Chest Pain (ED) Additional Instructions: Because she complained pain please utilize Percocet in which she was discharged with at the end of this recent hospital visit on 07/09/2019 Referrals: ZOE FRANKS MD [Staff Physician] - 3-5 Days
[2019-07-10] MEDS ORDERED: oxyCODONE /ACETAMINOPHEN 5-325MG TAB PO STA (02:16)
[2019-07-10 02:36] VITALS: BP 142/89
== END 2019-07-10 03:53 | disposition home or self-care (01) ==
LOC: ED 21:29
DX: R07.89 Other chest pain (principal); I10 Essential (primary) hypertension; F17.200 Nicotine dependence, unspecified, uncomplicated; R56.9 Unspecified convulsions; Z86.73 Personal history of transient ischemic attack (TIA), and cerebral infarction without residual deficits; Z98.890 Other specified postprocedural states; Z90.49 Acquired absence of other specified parts of digestive tract; Z79.899 Other long term (current) drug therapy
CPT/HCPCS: 36415; 71046; 80053; 83880; 84484; 85025; 85610; 85730; 93005; 93010

== ENCOUNTER 2019-07-10 07:06 | Emergency (ER) | payer SELFPAY ==
[2019-07-10 07:22] VITALS: BP 145/85
[2019-07-10 07:45] LABS: WBC,Urine < 1.0 /HPF (0.0-6.0)
[2019-07-10 08:02] LABS: Amphetamine Screen,Urine PRESUMPTIVE NEGATIVE; Benzodiazepines Screen,Urine PRESUMPTIVE NEGATIVE; Cannabinoid Screen,Urine PRESUMPTIVE NEGATIVE; Cocaine Screen,Urine PRESUMPTIVE NEGATIVE; Methadone Screen,Urine PRESUMPTIVE NEGATIVE; Opiate Screen,Urine PRESUMPTIVE NEGATIVE
[2019-07-10 08:14] LABS: Bilirubin,Urine Negative (Negative); Blood,Urine Negative (Negative); Color,Urine Straw (Yellow)
[2019-07-10 08:15] LABS: Basophils # (Auto) 0.1 K/mm3 (0.0-0.1); Basophils % (Auto) 0.9 % (0.0-1.8); Eosinophils # (Auto) 0.3 K/mm3 (0.0-0.4); Eosinophils % (Auto) 3.1 % (0.0-4.3); Hematocrit 46.1 % (35.5-45.6); Hemoglobin 15.3 gm/dl (11.8-15.2); Lymphocytes # (Auto) 1.7 K/mm3 (1.2-5.4); Mean Corpuscular HGB Conc 33 % (32-34); Mean Corpuscular Volume 91 fl (84-94); Monocytes # (Auto) 0.7 K/mm3 (0.0-0.8); Platelet Count 250 K/mm3 (140-440); Red Blood Count 5.08 M/mm3 (3.65-5.03)
[2019-07-10 08:41] LABS: BUN/Creatinine Ratio 27; Blood Urea Nitrogen 16 mg/dL (9-20); Calcium 9.5 mg/dL (8.4-10.2); Hemolysis Index 10
--- NOTE | 2019-07-10 08:45 | Emergency Department Report ---
HPI - General Chief Complaint: Psych Time Seen by Provider: 07/10/19 08:29 - HPI HPI: 53-year-old male presents to the emergency department with the complaint of both suicidal and homicidal ideations since last night. Patient says that he has the plan to walk in front of traffic in order to kill himself. He denies having any specific person for his homicidal ideations but says that he has a "rage." Patient admits to a history of depression and says that he is on Prozac and taking it compliantly. The patient has a past medical history of CVA, coronary artery disease with NE, hypertension, hyperlipidemia and previous alcohol withdrawal seizures. Patient says that he is "coming off of heroin" that he last used this morning. The patient was just recently here for a chest pain work-up about 1 week ago in which she was cleared by cardiology, and was once again seen yesterday in the emergency department for chest pain. However he denies any current chest pain at this time. ED Past Medical Hx - Past Medical History Hx Hypertension: Yes Hx CVA: Yes Hx Heart Attack/AMI: Yes Hx Congestive Heart Failure: No Hx Seizures: Yes Hx Psychiatric Treatment: Yes Additional medical history: alcohol wothdrawal seizure, TIA, CAD, chronic pain, hyperlipidemia - Surgical History Hx Coronary Stent: Yes (4 THEN 2 REPLACEMENTS) Hx Appendectomy: Yes Additional Surgical History: hernia, lower lumbar sx, R orbital sx - Social History Smoking Status: Current Every Day Smoker Substance Use Type: Alcohol - Medications Home Medications: Home Medications Medication Instructions Recorded Confirmed Last Taken Type ISOSORBIDE MONOnitrate [Imdur ER] 30 mg PO DAILY 07/05/19 07/05/19 Unknown History Multivitamin [One Daily 1 each PO DAILY 07/05/19 07/05/19 Unknown History Multivitamin] Oxazepam 15 mg PO QID 07/05/19 07/05/19 Unknown History Paliperidone Palmitate(Nf) [Invega 234 mg IM DAILY 07/05/19 07/05/19 Unknown History Sustenna(Nf)] carBAMazepine [TEGretol] 200 mg PO Q12HR 07/05/19 07/05/19 Unknown History diphenhydrAMINE [Benadryl CAP] 50 mg PO Q4H PRN 07/05/19 07/05/19 Unknown History haloperidoL [Haldol] 5 mg PO Q4H PRN 07/05/19 07/05/19 Unknown History hydrOXYzine PAMOATE [Vistaril] 25 mg PO Q6HR PRN 07/05/19 07/05/19 Unknown History lisinopriL [Zestril TAB] 20 mg PO QDAY 07/05/19 07/05/19 Unknown History Aspirin EC [Halfprin EC] 81 mg PO QDAY #30 tablet 07/09/19 Unknown Rx AtorvaSTATin [Lipitor] 40 mg PO QHS #30 tablet 07/09/19 Unknown Rx Clopidogrel [Plavix] 75 mg PO DAILY #30 tablet 07/09/19 Unknown Rx FLUoxetine [PROzac] 20 mg PO QDAY #30 cap 07/09/19 Unknown Rx Folic Acid 1 mg PO DAILY #30 07/09/19 Unknown Rx Gabapentin [Neurontin] 400 mg PO BID #20 07/09/19 Unknown Rx Metoprolol Xl [Metoprolol 25 mg PO QDAY #30 tablet 07/09/19 Unknown Rx SUCCINATE ER TAB] lisinopriL [Zestril TAB] 5 mg PO QDAY #30 tablet 07/09/19 Unknown Rx oxyCODONE /ACETAMINOPHEN [Percocet 1 tab PO QHS PRN #7 tablet 07/09/19 Unknown Rx 5/325] ED Review of Systems ROS: Stated complaint: SUICIDAL AND HOMICIDAL THOUGHTS Other details as noted in HPI Comment: All other systems reviewed and negative Constitutional: denies: chills, fever Eyes: denies: eye pain, vision change ENT: denies: ear pain, throat pain Respiratory: denies: cough, shortness of breath Cardiovascular: denies: chest pain, palpitations Gastrointestinal: denies: abdominal pain, vomiting Genitourinary: denies: dysuria, discharge Musculoskeletal: denies: back pain, arthralgia Skin: denies: rash, lesions Neurological: denies: headache, weakness Psychiatric: depression, homicidal thoughts, suicidal thoughts Physical Exam - Physical Exam Vital Signs: Vital Signs 07/10/19 07:13 Temperature 97.4 F L Pulse Rate 63 Respiratory 18 Rate Blood Pressure 145/85 O2 Sat by Pulse 97 Oximetry Physical Exam: GENERAL: The patient is well-developed well-nourished. HENT: Normocephalic. Atraumatic. Patient has moist mucous membranes. EYES: Extraocular motions are intact. NECK: Supple. Trachea is midline. CHEST/LUNGS: Clear to auscultation. There is no respiratory distress noted. HEART/CARDIOVASCULAR: Regular. There is no tachycardia. ABDOMEN: Abdomen is soft, nontender. Patient has normal bowel sounds. There is no abdominal distention. SKIN: Skin is warm and dry. NEURO: The patient is awake, alert, and oriented. The patient is cooperative. Normal speech. MUSCULOSKELETAL: There is no tenderness or deformity. There is no evidence of acute injury. ED Course Vital Signs 07/10/19 07:13 Temperature 97.4 F L Pulse Rate 63 Respiratory 18 Rate Blood Pressure 145/85 O2 Sat by Pulse 97 Oximetry ED Medical Decision Making - Lab Data Result diagrams: 07/10/19 07:49 07/10/19 07:49 - Medical Decision Making This patient was initially seen by me earlier this morning for a mental health evaluation. At that time the patient admitted that he had done some heroin overnight and this was causing him to feel suicidal. For that reason, initially, a 1013 was placed on this patient. His labs have been unremarkable including a negative UDS, despite his admission of heroin use. The patient was seen by the psychiatric nurse practitioner, and the case was staffed with the psychiatrist, Dr. Pollack. At the time of their consultation the patient denies any suicidal ideations. He admits that when he does heroin he feels some regret and depression secondary to his lack of control. I went in and reassessed the patient who now does say that he does not have any suicidal ideations. His vital signs have been stable throughout his ED course. Since the patient does deny any current suicidal or homicidal ideations, the 1013 will be rescinded. The patient has been provided some outpatient psychiatric referrals. He has been instructed to return to the emergency department immediately with any worsening of his symptoms, thoughts of harming himself or others, or with any acute distress. We did discuss avoiding any further illicit drug use. - Differential Diagnosis Depression, schizoaffective, bipolar disorder, substance abuse Critical Care Time: No Critical care attestation.: If time is entered above; I have spent that time in minutes in the direct care of this critically ill patient, excluding procedure time. ED Disposition Clinical Impression: Heroin use Depression Qualifiers: Depression Type: unspecified Qualified Code(s): F32.9 - Major depressive disorder, single episode, unspecified Disposition: DC-01 TO HOME OR SELFCARE Is pt being admited?: No Condition: Stable Instructions: Narcotic Abuse (ED), Depression (ED) Additional Instructions: Please avoid any further heroin or illicit drug use. Please follow-up with the [facility] facility, or any other psychiatric referrals that you were given by the psychiatric team. Return to the emergency department immediately with any worsening of your symptoms, thoughts of harming yourself or others, or with any acute distress. Take your medications as prescribed. Referrals: [facility] [Outside] - 2-3 Days [facility] [Outside] - 2-3 Days Time of Disposition: 13:07
--- NOTE | 2019-07-10 10:33 | Consultation ---
History of Present Illness - Reason for Consult Consult date: 07/10/19 Reason for consult: suicidal/homicidal ideation - Chief Complaint Chief complaint: Heroine use - History of Present Psychiatric Illness During my interview with the patient this morning, the patient is lying in bed resting with eyes closed. He is easily arousable. He is a/o x 3. He is calm and cooperative. He states he is here because he is "depressed and not able to think straight." The patient states his "daughter brought me here because she says I need to get off the drugs." The patient states he does "a little heroine" when asked about illicit drug use. When asking the patient was he suicidal at present, He says "at times, but no not really. I get like this when I use heroine." The patient also denies any homicidal thoughts or feelings. The sarina yee says his "daughter wants him in a drug program." He says he "knows what the answer to his troubles is." He says he "has to stop doing heroine." The patient states the last time he did heroine was "this morning." He says "it is a continuous cycle." He says "when I do heroine somehow I end up here." He says the last time he "was having chest pain." But says "I was actually at a meeting to quit then." He denies hallucinations of any kind. The patient says he lives with his spouse. He says he has never attempted suicide, but has been an inpatient for psych related disorders about "three times." Psychiatric History Pysch Diagnoses: Depression Suicidal attempts: Denies Admissions for psych disorders: three times Medications tried: Prozac Outpatient: yes Past Medical History HTN, CVA, Hyperlipidemia, CAD Social History Relationship status: Living arrangement: with spouse Highest level of education: GED Substance abuse: Heroine, ETOH Legal history: yes REVIEW OF SYSTEMS Constitutional: Negative for weight loss ENT: Negative for stridor Respiratory: Negative for cough or hemoptysis All other systems reviewed and are negative MSE Appearance: Dressed appropriately. In bed. Behavior: Calm and cooperative Mood: "depressed" Affect: Congruent Thought Process: Normal tone and pace Speech: normal tone and pace Thought Content Suicidal: "no, not really" Homicidal: Denies Hallucinations: Denies Delusions: Denies Consciousness: Alert Cognition/Memory: Fair Insight/Judgment: Fair Diagnoses: Diagnoses: Drug Induced Mood Disorder Plan D/C 1013 Continue home medications Sitter: Defer to primary Medical: per primary Disposition: The patient does not meet the requirement for acute inpatient psychiatric treatment. The patient may discharge home once medically cleared. The patient is to refrain from illicit drug use and alcohol. Follow up with outpatient psychiatry or primary doctor in 7 to 10 days. Please call with questions or comments. Thank you for this consult. Medications and Allergies Allergies Allergy/AdvReac Type Severity Reaction Status Date / Time No Known Allergies Allergy Verified 07/05/19 22:04 Home Medications Medication Instructions Recorded Confirmed Last Taken Type ISOSORBIDE MONOnitrate [Imdur ER] 30 mg PO DAILY 07/05/19 07/05/19 Unknown History Multivitamin [One Daily 1 each PO DAILY 07/05/19 07/05/19 Unknown History Multivitamin] Oxazepam 15 mg PO QID 07/05/19 07/05/19 Unknown History Paliperidone Palmitate(Nf) [Invega 234 mg IM DAILY 07/05/19 07/05/19 Unknown History Sustenna(Nf)] carBAMazepine [TEGretol] 200 mg PO Q12HR 07/05/19 07/05/19 Unknown History diphenhydrAMINE [Benadryl CAP] 50 mg PO Q4H PRN 07/05/19 07/05/19 Unknown History haloperidoL [Haldol] 5 mg PO Q4H PRN 07/05/19 07/05/19 Unknown History hydrOXYzine PAMOATE [Vistaril] 25 mg PO Q6HR PRN 07/05/19 07/05/19 Unknown History lisinopriL [Zestril TAB] 20 mg PO QDAY 07/05/19 07/05/19 Unknown History Aspirin EC [Halfprin EC] 81 mg PO QDAY #30 tablet 07/09/19 Unknown Rx AtorvaSTATin [Lipitor] 40 mg PO QHS #30 tablet 07/09/19 Unknown Rx Clopidogrel [Plavix] 75 mg PO DAILY #30 tablet 07/09/19 Unknown Rx FLUoxetine [PROzac] 20 mg PO QDAY #30 cap 07/09/19 Unknown Rx Folic Acid 1 mg PO DAILY #30 07/09/19 Unknown Rx Gabapentin [Neurontin] 400 mg PO BID #20 07/09/19 Unknown Rx Metoprolol Xl [Metoprolol 25 mg PO QDAY #30 tablet 07/09/19 Unknown Rx SUCCINATE ER TAB] lisinopriL [Zestril TAB] 5 mg PO QDAY #30 tablet 07/09/19 Unknown Rx oxyCODONE /ACETAMINOPHEN [Percocet 1 tab PO QHS PRN #7 tablet 07/09/19 Unknown Rx 5/325] Mental Status Exam - Vital signs Last Vital Signs Temp 97.4 F L 07/10/19 07:13 Pulse 63 07/10/19 07:13 Resp 16 07/10/19 08:43 BP 145/85 07/10/19 07:13 Pulse Ox 97 07/10/19 07:13 Results Result Diagrams: 07/10/19 07:49 07/10/19 07:49 Abnormal lab results 07/10/19 07/10/19 07/10/19 Range/Units 07:49 07:49 07:49 RBC (3.65-5.03) M/mm3 Hgb (11.8-15.2) gm/dl Hct (35.5-45.6) % Dukes % (Auto) (0.0-7.3) % Creatinine 0.6 L (0.8-1.5) mg/dL Glucose 110 H (75-100) mg/dL Salicylates < 0.3 L (2.8-20.0) mg/dL Acetaminophen < 5.0 L (10.0-30.0) ug/mL 07/10/19 Range/Units 07:49 RBC 5.08 H (3.65-5.03) M/mm3 Hgb 15.3 H (11.8-15.2) gm/dl Hct 46.1 H (35.5-45.6) % Dukes % (Auto) 8.0 H (0.0-7.3) % Creatinine (0.8-1.5) mg/dL Glucose (75-100) mg/dL Salicylates (2.8-20.0) mg/dL Acetaminophen (10.0-30.0) ug/mL All other labs normal.
== END 2019-07-10 13:41 | disposition home or self-care (01) ==
LOC: ED 07:06
DX: F32.9 Major depressive disorder, single episode, unspecified (principal); F19.10 Other psychoactive substance abuse, uncomplicated; F17.200 Nicotine dependence, unspecified, uncomplicated; I10 Essential (primary) hypertension; Z98.890 Other specified postprocedural states; Z90.49 Acquired absence of other specified parts of digestive tract; Z86.73 Personal history of transient ischemic attack (TIA), and cerebral infarction without residual deficits; Z79.899 Other long term (current) drug therapy
CPT/HCPCS: 36415; 80048; 80307; 80320; 81001; 85025; 99284; G0480